=== PATIENT | male | born 1960 | race Caucasian/White ===

== ENCOUNTER 2016-08-14 21:31 | Inpatient (IN) | payer OTHER ==
[~2016-08-14] VITALS: Ht 180.3 cm; Wt 113.8 kg
--- NOTE | ~2016-08-14 | HEMODYNAMI ---
PATIENT:HENRIETTA WASHBURN MEDICAL RECORD: [id number] : 56 LOCATION:[facility] [id number] ADMISSION DATE: 08/16/16 Generatedon:08/17/20169:02 Patient name: HENRIETTA WASHBUNR Patient #: [id number] : 1960 Date of study: 08/17/2016 Page: Of Hemodynamic Procedure Report Patient Data Patient Demographics Procedure consent was obtained First Name: HENRIETTA Gender: Male Last Name: MADDISON : 1960 Patient #: [id number] Age: 56 year(s) Race: SSN: [id number] Additional ID: [id number] Contact details Address: [address] [place] [address] ROAD State: [facility] Zip code: [address] Past Medical History Allergies: No known allergies Admission Admission Data Admission Date: 08/16/2016 Admission Time: 11:34 Arrival Date: 08/14/2016 Arrival Time: 23:09 Admit Source: Other Insurance Payor: Private Room #: [id number] health insurance Height (in.): 71 BSA: 2.32 (m2) Height (cm.): 180.34 BMI: 34.87 (kg/m2) Weight (lbs.): 250 Weight (kg.): 113.4 Lab Results Lab Result Date: 08/17/2016 Lab Result Time: 0:00 Biochemistry Name Units Result Min Max BUN mg/dl 14 --(--*-)-- 7 18 Creatinine mg/dl 1.1 --(--*-)-- 0.6 1.3 CBC Name Units Result Min Max Hemoglobin g/dl 14.6 --(-*--)-- 13.5 17.5 Procedure Procedure Types Cath Procedure Diagnostic Procedure FFR/IVUS Intra-Coronary IVUS Initial PCI Procedure Coronary Stent Initial Procedure Description Procedure Date Procedure Date: 08/17/2016 Procedure Start Time: 8:44 Procedure End Time: 8:56 Procedure Staff Name Function Chandana Kuo MD Performing Physician [place] Macedo RT Scrub Debra Rae RN Nurse Bam Brantley RT Monitor Indication Angina Procedure Data Cath Procedure Fluoroscopy Diagnostic fluoroscopy Total fluoroscopy Time: 4.9 time: 4.9 min min Diagnostic fluoroscopy Total fluoroscopy dose: 563 dose: 563 mGy mGy Contrast Material Contrast Material Type Amount (ml) Isovue 300 67 Entry Location Entry Primary Successful Side Size Upsize Upsize Entry Closure Succes sful Closure Location (Fr) 1 (Fr) 2 (Fr) Remarks Device Remarks Femoral Right 7 Fr Exoseal artery Short Procedure Complications No complications Procedure Medications Medication Administration Route Dosage Oxygen NC 2 l/min Heparin Flush Bag added to field 2 bags (1000units/500ml NS) Lidocaine 2% added to field 20 Versed I.V. 1 mg Fentanyl I.V. 50 mcg Heparin Bolus I.V. 4000 units Versed I.V. 1 mg Fentanyl I.V. 50 mcg Versed I.V. 1 mg Fentanyl I.V. 50 mcg Versed I.V. 1 mg Fentanyl I.V. 50 mcg Fentanyl I.V. 50 mcg Versed I.V. 1 mg Hemodynamics Rest BSA: 2.32 (m2) HGB: 14.6 (g/dl) O2 Consumption: Estimated: 280.76 (ml/min) O2 Co nsumption indexed: Estimated:121.02 (ml/min/m) Heart Rate: 78 (bpm) Snapshots Pre Cath Intra NCS Post Cath Vital Signs Time Heart Resp SPO2 NIBP (mmHg) Rhythm Pain Sedation Rate (ipm) (%) Status Level (bpm) 8:16:08 74 15 98 146/88(116) NSR 0 (11) 10(A) , No pain 8:20:26 78 16 92 137/79(100) NSR 0 (11) 10(A) , No pain 8:24:37 75 16 97 126/73(95) NSR 0 (11) 10(A) , No pain 8:28:50 66 16 97 115/74(88) NSR 0 (11) 10(A) , No pain 8:33:03 68 16 97 119/64(94) NSR 0 (11) 10(A) , No pain 8:37:19 70 16 97 120/62(99) NSR 0 (11) 10(A) , No pain 8:41:31 73 16 97 116/70(96) NSR 0 (11) 10(A) , No pain 8:45:45 69 16 97 121/62(98) NSR 0 (11) 10(A) , No pain 8:49:57 74 16 96 109/69(86) NSR 0 (11) 10(A) , No pain 8:54:07 71 16 97 116/67(83) NSR 0 (11) 10(A) , No pain 8:59:04 79 16 97 118/76(102) NSR 0 (11) 10(A) , No pain Medications Time Medication Route Dose Verified Delivered Reason Notes Effectiveness by by 8:17:04 Oxygen NC 2 Chandana Debra Per physician l/min Shiela Rae RN 8:17:11 Heparin Flush added 2 Chandana Chandana used for Bag to bags Shiela Kuo MD procedure (1000units/500ml field NS) 8:17:17 Lidocaine 2% added 20ml Chandana Chandana used for to vial Shiela Kuo MD procedure field 8:44:13 Versed I.V. 1 mg Chandana Debra for sedation Shiela Rae RN 8:44:20 Fentanyl I.V. 50 Chandana Debra for sedation mcg Shiela Rae RN 8:45:32 Heparin Bolus I.V. 4000 Chandana Debra for dose units Shiela Rae RN anticoagulation verifeid wt dr kuo 8:45:53 Versed I.V. 1 mg Chandana Debra for sedation Shiela Rae RN 8:45:57 Fentanyl I.V. 50 Chandana Debra for sedation mcg Shiela Rae RN 8:47:29 Versed I.V. 1 mg Chandana Debra for sedation Shiela Rae RN 8:47:32 Fentanyl I.V. 50 Chandana Debra for sedation mcg Shiela Rae RN 8:48:13 Fentanyl I.V. 50 Chandana Debra for sedation mcg Shiela Rae RN 8:48:52 Versed I.V. 1 mg Chandana Debra for sedation Shiela Rae RN 8:50:31 Versed I.V. 1 mg Chandana Debra for sedation Tauth MD Randolph RN 8:50:45 Fentanyl I.V. 50 Chandana Debra for sedation [facility] Shiela Rae [employer] Log Time Note 7:50:45 Debra Rae RN sent for patient. Start room use. 8:08:11 Diagnostic Cath Status : Elective 8:08:40 Indication : Angina 8:08:55 Time tracking: Regular hours 8:08:59 Plan of Care:Hemodynamics will remain stable., Cardiac rhythm will remain stable., Comfort level will be maintained., Respiratory function will remain adequate., Patient/ family verbilizes understanding of procedure., Procedure tolerated without complication., Recovers from procedure without complications.. 8:11:24 Patient received from Med II to CCL 1 Alert and oriented. Tansferred to table in Supine position. 8:11:25 Warm blankets applied, and luisana hugger turned on for patient comfort. 8:11:26 Correct patient and procedure confirmed by team. 8:11:27 Signed procedure consent form obtained from patient. 8:11:28 ECG and BP/O2 sat monitors applied to patient. 8:14:56 Vital chart was started 8:15:05 Baseline sample Acquired. 8:15:11 Rhythm: sinus rhythm 8:15:12 Full Disclosure recording started 8:15:16 H&P Date Dictated: 08/17/2016 Within 30 days and on chart.. 8:15:17 Pre-procedure instructions explained to patient. 8:15:18 Pre-op teaching completed and patient verbalized understanding. 8:15:19 Family in waiting room. 8:15:21 Patient NPO since Midnight. 8:15:29 Is the patient allergic to Iodine/contrast media? No. 8:15:30 Was the patient premedicated? No 8:15:32 Is patient on blood thinner?Yes 8:15:35 ACC The patient was administered the following blood thiners within the last 24 hours: ACCPlavix 8:15:37 Patient diabetic? No. 8:15:39 Previous problem with sedation/anesthesia? No ? 8:15:41 Snore? Yes 8:15:42 Sleep apnea? Yes 8:15:43 Deviated septum? No 8:15:44 Opens mouth fully? Yes 8:15:44 Sticks out tongue? Yes 8:15:46 Airway obstruction? No ? 8:15:49 Dentures? No ? 8:15:52 Pre procedure: right dorsailis pedis pulse 2+ Normal; easily identifiable; not easily obliterated 8:15:55 Patient pain scale 0/10 ?. 8:16:02 IV patent on arrival in left forearm with 0.9% NaCl at [facility]. 8:16:06 Lab results completed and on chart. 8:16:10 Right groin area was prepped with chlora-prep and draped in sterile fashion 8:16:11 Alarms reviewed by R. N. 8:16:11 Sharps counted by scrub and verified by R.N. 8:17:04 Oxygen 2 l/min NC was given by Debra Rae RN; Per physician; 8:17:11 Heparin Flush Bag (1000units/500ml NS) 2 bags added to field was given by Chandana Kuo MD; used for procedure; 8:17:17 Lidocaine 2% 20ml vial added to field was given by Chandana Kuo MD; used for procedure; 8:21:34 Lab Result : BUN 14 mg/dl 8:21:34 Lab Result : Creatinine 1.1 mg/dl 8:21:34 Lab Result : Hemoglobin 14.6 g/dl 8:21:34 Hemodynamic formulas in Rest were re-calculated based on hemoglobin value from 08/17/2016 12:00:00 AM 8:21:43 Use device set Femoral PCI 8:21:45 Acist Syringe opened to sterile field. 8:21:45 Acist Hand Control opened to sterile field. 8:21:45 Bag Decanter opened to sterile field. 8:21:46 Cardinal Cath Pack opened to sterile field. 8:21:46 Terumo 6Fr [place] Sheath opened to sterile field. 8:21:47 St Live 260cm J .035 wire opened to sterile field. 8:21:47 Merit BasixCompak Inflation Kit opened to sterile field. 8:21:48 Acist Manifold opened to sterile field. 8:21:50 Tegaderm 4 x 4 opened to sterile field. 8:22:01 Daniels Whisper J 300cm 0.014 guide wire opened to sterile field. 8:22:02 Fleischmanns Chinik Eagleye IVUS Catheter opened to sterile field. 8:28:26 Baseline sample Acquired. 8:28:49 Zero performed for pressure channel P1 8:43:42 --------ALL STOP TIME OUT------ 8:43:42 Final Timeout: patient, procedure, and site verified with staff and physician. All members of the team are in agreement. 8:43:44 Right groin site verified by team. 8:43:46 Physical assessment completed. ASA score P 2 - A patient with mild systemic disease as per Chandana Kuo MD. 8:43:49 Sedation plan: IV Moderate Sedation Versed 8:43:53 Sedation plan: IV Moderate Sedation Fentanyl 8:44:09 Procedure started. 8:44:13 Versed 1 mg I.V. was given by Debra Rae RN; for sedation; 8:44:20 Fentanyl 50 mcg I.V. was given by Debra Rea RN; for sedation; 8:44:45 Local anesthetic to right femoral artery with Lidocaine 2% by Chandana Kuo MD.INITIAL ACCESS ONLY 8:44:58 A 7 Fr Short sheath was inserted into the Right Femoral artery 8:45:09 7 Fr AR 2 SH guide catheter was inserted over the wire 8:45:17 Medtronic Launcher 7Fr AR 2.0 SH guide catheter opened to sterile field. 8:45:22 WHISPER wire advanced. 8:45:25 FFR/IVUS 8:45:25 IVUS catheter advanced over wire. 8:45:28 IVUS pass to RCA lesion performed. 8:45:32 Heparin Bolus 4000 units I.V. was given by Debra Rae RN; for anticoagulation; dose verifeid wt dr kuo 8:45:51 Procedure type changed to Cath procedure, Diagnostic procedure, FFR/IVUS, Intra-Coronary IVUS Initial, PCI procedure, Coronary Stent Initial 8:45:53 Versed 1 mg I.V. was given by Debra Rae RN; for sedation; 8:45:57 Fentanyl 50 mcg I.V. was given by Debra Rae RN; for sedation; 8:47:29 Versed 1 mg I.V. was given by Debra Rae RN; for sedation; 8:47:32 Fentanyl 50 mcg I.V. was given by Debra Rae RN; for sedation; 8:48:13 Fentanyl 50 mcg I.V. was given by Debra Rae RN; for sedation; 8:48:52 Versed 1 mg I.V. was given by Debra Rae RN; for sedation; 8:49:17 IVUS catheter removed over wire. 8:50:31 Versed 1 mg I.V. was given by Debra Rae RN; for sedation; 8:50:45 Fentanyl 50 mcg I.V. was given by Debra Rae RN; for sedation; 8:50:51 Inflation Number: 1 A Medtronic Resolute 3.5 X 18 stent was prepped and advanced across the Mid RCA. The stent was deployed at 21 FORREST for 0:11 (min:sec). 8:50:52 Stent catheter was removed intact over wire. 8:51:03 ACC PCI Site: mRCA has 73% stenosis. 8:52:58 Inflation Number: 1 A Medtronic Resolute 3.5 X 22 stent was prepped and advanced across the Prox RCA. The stent was deployed at 21 FORREST for 0:16 (min:sec). 8:53:42 Stent catheter was removed intact over wire. 8:53:43 Wire removed. 8:53:43 Guide catheter removed. 8:54:10 Contrast amount:Isovue 300 67ml. 8:54:17 Sheath removed intact; hemostasis achieved with Exoseal to the Right Femoral artery. 8:54:19 Procedure ended.(Physican Out) 8:54:37 Fluoroscopy time 04.90 minutes. 8:54:42 Fluoroscopy dose: 563 mGy 8:54:42 Flurop Dose total: 563 8:54:43 Sharps counted by scrub and verified by R.N. 8:54:44 Insertion/operative site no bleeding no hematoma. 8:54:46 Post-op/insertion site Right Femoral artery dressed using a 4 x 4 and Tegaderm. 8:54:50 Post right femoral artery:stable 8:54:51 Post Procedure Pulses reassessed and unchanged 8:54:55 Post procedure rhythm: sinus rhythm 8:54:57 Post procedure instruction explained to patient.Patient verbalizes understanding. 8:55:17 Cordis 7Fr Exoseal opened to sterile field. 8:55:54 Procedure and supply charges have been captured, reviewed, submitted and are correct. 8:56:12 Procedure Complication : No complications 8:56:23 Vital chart was stopped 8:56:48 Report given to PCU. 8:56:51 Patient transfered to PCU with Bed. 8:56:53 Procedure ended. 8:56:53 Full Disclosure recording stopped 8:57:04 ACC-PCI Only Patient was given prescriptions, or instructed by Chandana Kuo MD to start/continue the following medications upon discharge: Aspirin, Plavix 8:57:06 End room use (Document Last) Intervention Summary Intervention Notes Time ActionType Lesion and Equipment Action# Pressure Duration Attributes Used 8:50:51 Place stent Mid RCA Medtronic 1 21 00:11 Resolute 3.5 X 18 stent 8:52:58 [address] stent Prox RCA Medtronic 1 21 00:16 Resolute 3.5 X 22 stent Device Usage Item Name Manufacture Quantity Catalog Hospital Part Current Minimal Lot# / Number Charge Number Stock Stock Serial# Code Acist Acist 1 00219 910270 759056 950994 20 Syringe Medical Systems Inc Acist Hand Acist 1 73082 720013 383516 960420 5 Control Medical Systems Inc Bag Microtek 1 2002S 187183 20036 278124 5 Pivot [employer] Inc. Cardinal Cardinal [address] 203782 77337 985027 5 Cath Pack Health Terumo 6Fr Terumo 1 [id number] 479853 310687 641096 [address] Live St Live 1 704663 553164 257598 025231 30 260cm J .035 wire Merit Merit 1 [id number] 345334 102754 260195 15 [employer]inKVZ Sports Medical Inflation Kit Acist Acist 1 37860 298442 088827 207999 5 Manifold Medical Systems Inc Tegaderm 4 3M 1 1626W 176796 384884 671697 5 x 4 Daniels Daniels 1 [id number] 814261 194827 864821 5 Whisper J Vascular 300cm 0.014 guide wire Fleischmanns Fleischmanns 1 [id number] 580003 481243 095598 8 Chinik Eagleye IVUS Catheter Medtronic Medtronic 1 [id number] 609365 256325 996370 0 Launcher 7Fr AR 2.0 SH guide catheter Medtronic Medtronic 1 [id number] 328598 912903 1 [id number] Resolute 3.5 X 18 stent Medtronic Medtronic 1 [id number] 901234 084205 6 [id number] Resolute 3.5 X 22 stent Cordis 7Fr Cardinal 1 [id number] 785139 265621 365868 5 [facility] Signature Audit [place] Stage Time Signature Unsigned Intra-Procedure 08/17/2016 Bam Brantley 9:02:01 AM RT(R) Signatures Monitor : Bam Brantley RT Signature : Date : Time : [address] [place] [address]
--- NOTE | ~2016-08-14 | HEMODYNAMI ---
PATIENT:HENRIETTA WASHBURN MEDICAL RECORD: [id number] : 56 LOCATION:[facility] [id number] ADMISSION DATE: 08/14/16 Generatedon:08/16/20169:33 Patient name: HENRIETTA WASHBURN Patient #: [id number] : 1960 Date of study: 08/16/2016 Page: Of Hemodynamic Procedure Report Patient Data Patient Demographics Procedure consent was obtained First Name: HENRIETTA Gender: Male Last Name: MADDISON : 1960 Patient #: [id number] Age: 56 year(s) Race: SSN: [id number] Additional ID: [id number] Contact details Address: [address] [place] [address] ROAD State: [facility] Zip code: [address] Past Medical History Allergies: No known allergies Admission Admission Data Admission Date: 08/14/2016 Admission Time: 23:09 Arrival Date: 08/14/2016 Arrival Time: 23:09 Admit Source: Other Insurance Payor: Private Room #: [id number] health insurance Height (in.): 71 BSA: 2.32 (m2) Height (cm.): 180.34 BMI: 34.87 (kg/m2) Weight (lbs.): 250 Weight (kg.): 113.4 Lab Results Lab Result Date: 08/16/2016 Lab Result Time: 0:00 Biochemistry Name Units Result Min Max BUN mg/dl 14 --(--*-)-- 7 18 Creatinine mg/dl 1.2 --(---*)-- 0.6 1.3 CBC Name Units Result Min Max Hemoglobin g/dl 14.9 --(-*--)-- 13.5 17.5 Procedure Procedure Types Cath Procedure Diagnostic Procedure LHC LHC w/Coronaries PCI Procedure Coronary Stent Initial Procedure Description Procedure Date Procedure Date: 08/16/2016 Procedure Start Time: 9:16 Procedure End Time: 9:31 Procedure Staff Name Function Chandana Kuo MD Performing Physician Deena Barkley RT Scrub Debra Rae RN Nurse Bam Brantley RT Furniture Restorer India Macedo RT Monitor Indication Angina Procedure Data Cath Procedure Fluoroscopy Diagnostic fluoroscopy Total fluoroscopy Time: 4.3 time: 4.3 min min Diagnostic fluoroscopy Total fluoroscopy dose: dose: 1053 mGy 1053 mGy Contrast Material Contrast Material Type Amount (ml) Isovue 370 112 Entry Location Entry Primary Successful Side Size Upsize Upsize Entry Closure Jenkins ccessful Closure Location (Fr) 1 (Fr) 2 (Fr) Remarks Device Remarks Radial Right 6 Fr Mechanical artery Short Compression Estimated blood loss: 5 ml Diagnostic catheters Device Type Used For End Catheter Placement Terumo 5Fr Mohit 110cm Multi-vessel catheter Angiography Cordis Infinity 5Fr AR 2 Right Coronary MOD catheter Angiography Procedure Complications No complications Procedure Medications Medication Administration Route Dosage Oxygen NC 2 l/min Heparin Flush Bag added to field 2 bags (1000units/500ml NS) Lidocaine 2% added to field 20 Benadryl I.V. 50 mg Radial Cocktail added to field 1 syringe (Verapomil 2mg/Nitro 400mcg/Heparin 1500units) Versed I.V. 1 mg Fentanyl I.V. 50 mcg Versed I.V. 1 mg Fentanyl I.V. 50 mcg Radial Cocktail I.A. 1 syringe (Verapomil 2mg/Nitro 400mcg/Heparin 1500units) Versed I.V. 1 mg Fentanyl I.V. 50 mcg Versed I.V. 1 mg Fentanyl I.V. 50 mcg Heparin Bolus I.V. 4000 units Fentanyl I.V. 50 mcg Fentanyl I.V. 50 mcg Hemodynamics Rest BSA: 2.32 (m2) HGB: 14.9 (g/dl) O2 Consumption: Estimated: 266.96 (ml/min) O2 Co nsumption indexed: Estimated:115.07 (ml/min/m) Heart Rate: 63 (bpm) Pressure Samples Time Site Value (mmHg) Purpose Heart Use Rate(bpm) 9:18 LV 99/64,67 Snapshot 82 Snapshots Pre Cath Intra NCS Post Cath Vital Signs Time Heart Resp SPO2 NIBP (mmHg) Rhythm Pain Sedation Rate (ipm) (%) Status Level (bpm) 8:33:49 65 12 98 138/91(120) NSR 0 (11) 10(A) , No pain 8:38:05 56 21 98 135/81(120) SB 0 (11) 10(A) , No pain 8:42:23 55 13 98 141/80(133) SB 0 (11) 10(A) , No pain 8:46:41 59 17 98 130/85(109) SB 0 (11) 10(A) , No pain 8:50:57 56 18 97 124/72(100) SB 0 (11) 10(A) , No pain 8:55:09 56 18 97 134/82(95) SB 0 (11) 10(A) , No pain 8:59:25 55 20 96 117/70(83) SB 0 (11) 10(A) , No pain 9:04:13 59 18 97 123/71(88) SB 0 (11) 10(A) , No pain 9:08:25 54 16 96 115/67(96) SB 0 (11) 10(A) , No pain 9:12:35 73 16 99 123/79(101) SB 0 (11) 10(A) , No pain 9:16:49 59 18 97 129/76(109) SB 0 (11) 10(A) , No pain 9:20:59 67 17 96 112/64(84) SB 0 (11) 10(A) , No pain 9:25:11 75 16 96 115/63(103) SB 0 (11) 10(A) , No pain 9:29:21 87 14 98 107/70(87) SB 0 (11) 10(A) , No pain 9:31:59 86 13 98 115/76(91) SB 0 (11) 10(A) , No pain Medications Time Medication Route Dose Verified Delivered Reason Notes Effectiveness by by 8:38:51 Oxygen NC 2 l/min Chandana Richardson Per physician Shiela Rae RN 8:38:58 Heparin Flush added 2 bags Chandana Ellington used for Bag to Shiela Kuo MD procedure (1000units/500ml field NS) 8:39:04 Lidocaine 2% added 20ml Chandana Ellington used for to vial Shiela Kuo MD procedure field 8:39:11 Benadryl I.V. 50 mg Chandana Richardson Per physician Shiela Rae RN 8:46:42 Radial Cocktail added 1 Chandana Chandana used for (Verapomil to syringe Shiela Kuo MD procedure 2mg/Nitro field 400mcg/Heparin 1500units) 9:13:03 Versed I.V. 1 mg Chandana Debra for sedation Shiela Rae RN 9:13:08 Fentanyl I.V. 50 mcg Chandana Debra for sedation Shiela Rae RN 9:15:48 Versed I.V. 1 mg Chandana Debra for sedation Shiela Rae RN 9:15:51 Fentanyl I.V. 50 mcg Chandana Debra for sedation Shiela Rae RN 9:17:12 Radial Cocktail I.A. 1 Chandana Chandana for (Verapomil syringe Shiela Kuo MD vasodilation 2mg/Nitro 400mcg/Heparin 1500units) 9:17:20 Versed I.V. 1 mg Chandana Debra for sedation Shiela Rae RN 9:17:23 Fentanyl I.V. 50 mcg Chandana Debra for sedation Shiela Rae RN 9:21:47 Versed I.V. 1 mg Chandana Debra for sedation Shiela Rae RN 9:21:49 Fentanyl I.V. 50 mcg Chandana Debra for sedation Shiela Rae RN 9:23:48 Fentanyl I.V. 50 mcg Chandana Debra for sedation Shiela Rae RN 9:24:29 Heparin Bolus I.V. 4000 Chandana Debra for dose units Shiela Rae RN anticoagulation verified wtih dr kuo 9:25:59 Fentanyl I.V. 50 mcg Chandana Debra for sedation Shiela Rae RN Procedure Log Time Note 8:10:28 Bam Brantley RT(R) sent for patient. Start room use. 8:18:45 Informed consent obtained and on chart 8:18:54 Arrival Date: 08/14/2016 11:09:00 PM 8:19:06 Insurance Payor : Private health insurance 8:19:07 Admit Source: Other 8:22:43 Lab Result : BUN 14 mg/dl 8:22:43 Lab Result : Hemoglobin 14.9 g/dl 8:22:43 Lab Result : Creatinine 1.2 mg/dl 8:22:54 Diagnostic Cath Status : Elective 8:23:22 Indication : Angina 8:23:34 Time tracking: Regular hours 8:23:39 Plan of Care:Hemodynamics will remain stable., Cardiac rhythm will remain stable., Comfort level will be maintained., Respiratory function will remain adequate., Patient/ family verbilizes understanding of procedure., Procedure tolerated without complication., Recovers from procedure without complications.. 8:28:18 Patient received from Med II to CCL 1 Alert and oriented. Tansferred to table in Supine position. 8:28:19 Warm blankets applied, and luisana hugger turned on for patient comfort. 8:28:19 Correct patient and procedure confirmed by team. 8:28:19 ECG and BP/O2 sat monitors applied to patient. 8:29:53 H&P Date Dictated: 08/14/2016 Within 30 days and on chart.. 8:29:55 Pre-procedure instructions explained to patient. 8:30:03 Pre-op teaching completed and patient verbalized understanding. 8:30:10 Family in waiting room. 8:30:12 Patient NPO since Midnight. 8:30:21 Patient allergic to No known allergies 8:30:40 Is the patient allergic to Iodine/contrast media? No. 8:31:30 Patient Weight : 113.4 lbs 8:32:24 Is patient on blood thinner?Yes 8:32:28 ACC The patient was administered the following blood thiners within the last 24 hours: ACCPlavix 8:32:30 Patient diabetic? No. 8:32:35 Snore? Yes 8:32:37 Sleep apnea? Yes 8:32:39 Deviated septum? No 8:32:41 Opens mouth fully? Yes 8:32:43 Sticks out tongue? Yes 8:32:50 Dentures? No ? 8:32:52 Vital chart was started 8:32:57 Baseline sample Acquired. 8:33:02 Rhythm: sinus rhythm 8:33:03 Full Disclosure recording started 8:33:17 Patient pain scale 0/10 ?. 8:33:28 IV patent on arrival in right forearm with 0.9% NaCl at O. 8:33:34 Lab results completed and on chart. 8:33:38 Right Radial & Right Groin area was prepped with chlora-prep and draped in sterile fashion 8:33:40 Alarms reviewed by R. N. 8:33:42 Sharps counted by scrub and verified by R.N. 8:33:43 Physician paged 8:34:57 Use device set Radial Dx 8:34:58 Acist Syringe opened to sterile field. 8:34:59 Cardinal Cath Pack opened to sterile field. 8:34:59 Bag Decanter opened to sterile field. 8:34:59 Terumo 6Fr Slender Glidesheath opened to sterile field. 8:35:00 St Live 260cm J .035 wire opened to sterile field. 8:35:02 Tegaderm 4 x 4 opened to sterile field. 8:35:04 Acist Hand Control opened to sterile field. 8:35:05 Acist Manifold opened to sterile field. 8:38:51 Oxygen 2 l/min NC was given by Debra Rae RN; Per physician; 8:38:58 Heparin Flush Bag (1000units/500ml NS) 2 bags added to field was given by Chandana Kuo MD; used for procedure; 8:39:04 Lidocaine 2% 20ml vial added to field was given by Chandana Kuo MD; used for procedure; 8:39:11 Benadryl 50 mg I.V. was given by Debra Rae RN; Per physician; 8:46:13 Patient Height : 180.34 inches 8:46:42 Radial Cocktail (Verapomil 2mg/Nitro 400mcg/Heparin 1500units) 1 syringe added to field was given by Chandana Kuo MD; used for procedure; 9:11:50 Physician arrived 9:11:51 --------ALL STOP TIME OUT------ 9:11:51 Final Timeout: patient, procedure, and site verified with staff and physician. All members of the team are in agreement. 9:12:06 Right Radial & Right Groin site verified by team. 9:12:13 Physical assessment completed. ASA score P 2 - A patient with mild systemic disease as per Chandana Kuo MD. 9:12:17 Sedation plan: IV Moderate Sedation Versed, Fentanyl 9:12:25 Procedure started. 9:13:03 Versed 1 mg I.V. was given by Debra Rae RN; for sedation; 9:13:08 Fentanyl 50 mcg I.V. was given by Debra Rae RN; for sedation; 9:15:48 Versed 1 mg I.V. was given by Debra Rae RN; for sedation; 9:15:51 Fentanyl 50 mcg I.V. was given by Debra Rae RN; for sedation; 9:16:24 Local anesthetic to right radial artery with Lidocaine 2% by Chandana Kuo MD.INITIAL ACCESS ONLY 9:16:34 A 6 Fr Short sheath was inserted into the Right Radial artery 9:17:06 A Access Point 5Fr Mohit 110cm catheter was advanced over the wire and used for Multi-vessel Angiography. 9:17:12 Radial Cocktail (Verapomil 2mg/Nitro 400mcg/Heparin 1500units) 1 syringe I.A. was given by Chandana Kuo MD; for vasodilation; 9:17:20 Versed 1 mg I.V. was given by Debra Rae RN; for sedation; 9:17:23 Fentanyl 50 mcg I.V. was given by Debra Rae RN; for sedation; 9:18:18 LV hemodynamics recorded. 9:18:19 LV gram done using ASHLEY 9:18:22 Injector settings: Ml/sec: 5, Volume: 15, 9:18:27 EF : 55 % 9:18:54 Catheter removed. 9:20:07 Cordis 6FR XBLAD 3.5 guide catheter opened to sterile field. 9:20:20 A Cordis Infinity 5Fr AR 2 MOD catheter was advanced over the wire and used for Right Coronary Angiography. 9:20:23 RCA angiography performed. 9:20:27 Injector settings: Ml/sec: 3, Volume: 6, 9:20:55 Catheter removed. 9:21:06 6 Fr xblad 3.5 guide catheter was inserted over the wire 9:21:47 Versed 1 mg I.V. was given by Debra Rae RN; for sedation; 9:21:49 Fentanyl 50 mcg I.V. was given by Debra Rae RN; for sedation; 9:21:52 LCA angiography performed. 9:21:54 Injector settings: Ml/sec: 3, Volume: 6, 9:22:42 Daniels Whisper J 300cm 0.014 guide wire opened to sterile field. 9:22:42 Merit BasixCompak Inflation Kit opened to sterile field. 9:23:48 Fentanyl 50 mcg I.V. was given by Debra Rae RN; for sedation; 9::29 Heparin Bolus 4000 units I.V. was given by Debra Rae RN; for anticoagulation; dose verified wtih dr kuo 9:24:48 whisper wire advanced. 9:25:59 Fentanyl 50 mcg I.V. was given by Debra Rae RN; for sedation; 9::14 Inflation Number: 1 A Medtronic Resolute 2.5 X 14 stent was prepped and advanced across the Mid CX. The stent was deployed at 13 FORREST for 0:10 (min:sec). 9::42 Stent catheter was removed intact over wire. 9::43 Wire removed. 9::43 Guide catheter removed. 9:29:18 Terumo TR Band Standard opened to sterile field. 9:29:49 Sheath removed intact; hemostasis achieved with Mechanical Compression to the Right Radial artery. 9:29:50 Procedure ended.(Physican Out) 9:30:00 Fluoroscopy time 04.30 minutes. 9:30:05 Fluoroscopy dose: 1053 mGy 9:30:05 Flurop Dose total: 1053 9:30:09 Contrast amount:Isovue 370 112ml. 9:30:13 Sharps counted by scrub and verified by R.N. 9:30:15 TR band inflated with 10cc of air. 9:30:17 Insertion/operative site no bleeding no hematoma. 9:30:21 Post right radial artery:stable 9:30:23 Post Procedure Pulses reassessed and unchanged 9:30:26 Post procedure rhythm: unchanged. 9:30:28 Estimated blood loss: 5 ml 9:30:29 Post procedure instruction explained to patient.Patient verbalizes understanding. 9:30:30 Patient needs reinforcement of post procedure teaching. 9:30:48 Procedure type changed to Cath procedure, Diagnostic procedure, LHC, LHC w/Coronaries, PCI procedure, Coronary Stent Initial 9:30:49 Procedure and supply charges have been captured, reviewed, submitted and are correct. 9:30:53 Procedure Complication : No complications 9:30:55 Vital chart was stopped 9:30:56 See physician's report for complete and final results. 9:31:11 Report given to Med II. 9:31:13 Patient transfered to Med II with Stretcher. 9:31:16 Procedure ended. 9:31:16 Full Disclosure recording stopped 9::28 ACC-PCI Only Patient was given prescriptions, or instructed by Chandana Kuo MD to start/continue the following medications upon discharge: Plavix 9::29 End room use (Document Last) Intervention Summary Intervention Notes Time ActionType Lesion and Equipment Action# Pressure Duration Attributes Used 9::14 Place stent Mid CX Medtronic 1 13 00:10 Resolute 2.5 X 14 stent Device Usage Item Name Manufacture Quantity Catalog Hospital Part Current Minimal Lot# / Number Charge Number Stock Stock Serial# Code Acist Acist 1 57288 489734 977887 905352 20 Syringe Medical Systems Inc Cardinal Cardinal 1 [id number] 558904 80213 822493 5 Cath Pack Health Bag Microtek 1 2001S 541755 80007 327069 5 shipbeat [employer] Inc. Terumo 6Fr Terumo 1 [id number] 300181 148440 940549 [address] Live St Live 1 183923 451727 116786 294757 30 260cm J .035 wire Tegaderm 4 3M 1 1626W 274652 477275 520579 5 x 4 Acist Hand Acist 1 96955 217992 559237 557562 5 Control Medical Systems Inc Acist Acist 1 10971 303684 271703 838813 5 Manifold Medical Systems Inc Terumo 5Fr Terumo 1 40-4595 345879 059757 166956 5 Mohit 110cm catheter Cordis 6FR Cardinal 1 [id number] 651678 213009 123402 10 XBLAD 3.5 Health guide catheter Cordis Cardinal 1 [id number] 321674 659694 390603 20 Collective Digital Studioity Health 5Fr AR 2 MOD catheter Daniels Daniels 1 [id number] 722721 115430 002326 5 Whisper J Vascular 300cm 0.014 guide wire Merit Merit 1 OR0956 135653 832112 228543 15 [employer] Medical Inflation Kit Medtronic Medtronic 1 [id number] 806957 290370 8 [id number] Resolute 2.5 X 14 stent Terumo TR Terumo 1 [id number] 201026 408964 571019 40 Band Standard Signature Audit [employer] [place] Stage Time Signature Unsigned Intra-Procedure 08/16/2016 India Macedo 9:33:13 AM RT(R) Signatures Monitor : India Macedo RT Signature : Date : Time : [place] [id number] [facility] [place] [address]
[~2016-08-14 21:31] MED LIST: ASPIRIN EC81 M1 PO; COZAAR50 MG PO; LIPITOR40 MG PO; PLAVIX75 MG PO
[2016-08-14 22:09] LABS: BASOPHILS 0.7 % (0.0-2.0); EOSINOPHILS 3.2 % (0-7); HEMATOCRIT 43.1 % (42.0-54.0); HEMOGLOBIN 14.9 g/dL (13.5-17.5); IMMATURE GRANULOCYTES 0.2 % (0-5); MCH 32.7 pg (26.0-34.0); MCHC 34.6 g/dL (31.0-37.0); MCV 94.5 fL (80.0-100.0); MEAN PLATELET VOLUME 10.9 fL (7.4-10.4); MONOCYTES 8.5 % (2-11); NEUTROPHILS 68.4 % (40-80); PLATELET COUNT 204 10x3/uL (130-400); RBC 4.56 10x6/uL (4.20-6.10); RDW 12.4 % (11.5-14.5); WBC 10.3 10x3/uL (4.8-10.8)
[2016-08-14 22:20] LABS: APTT 26.9 SECONDS (22.8-39.4); INR 1.1 (0.85-1.17); PROTIME 14.1 SECONDS (11.6-15.0)
[2016-08-14 22:25] LABS: ALBUMIN 4.1 g/dL (3.4-5.0); ALKALINE PHOSPHATASE 68 U/L (46-116); ALT (SGPT) 50 U/L (10-68); BILIRUBIN - TOTAL 0.57 mg/dL (0.2-1.3); CALC OSMOLALITY 283 mosm/kg (275-300); CALCIUM 9.4 mg/dL (8.5-10.1); CARBON DIOXIDE 27.2 mmol/L (21.0-32.0); CHLORIDE - SERUM 105 mmol/L (98-107); CREATININE - SERUM 1.2 mg/dL (0.6-1.3); GLUCOSE 102 mg/dL (74-106); POTASSIUM - SERUM 4.3 mmol/L (3.5-5.1); PROTEIN - SERUM 7.1 g/dL (6.4-8.2); SODIUM 142 mmol/L (136-145); UREA NITROGEN 14 mg/dL (7-18); eGFR NON AFRICAN AMERICAN 66 mL/min (90-120)
[2016-08-14 22:33] LABS: CREATINE KINASE 150 UL (21-232); PRO BNP 56 pg/mL (0-125)
[2016-08-14 22:35] LABS: TROPONIN-I < 0.017 ng/mL (0.000-0.060)
--- NOTE | 2016-08-14 23:37 | NUR ---
PT ARRIVED VIA W/C WITH DX ACS. PT NAD, DENIES ANY DISCOMFORT. AT BEDSIDE.
[2016-08-14 23:56] VITALS: BP 142/88; Ht 180.3 cm; Wt 113.8 kg
--- NOTE | 2016-08-15 00:16 | NUR ---
ADMISSION ASSESSMENT AND HISTORY COMPLETED. VSS. PT DENIES ANY DISCOMFORT. SB PER CM HR 57. WILL CONTINUE TO MONITOR.
[2016-08-15 00:17] VITALS: BP 142/88
[2016-08-15] MEDS ORDERED: ATIVAN0.5 MG PO (00:19)
[2016-08-15] MEDS ORDERED: LISINOPRIL5 MG PO (00:19)
[2016-08-15] MEDS ORDERED: PEPCID40 MG PO (00:20)
[2016-08-15] MEDS ORDERED: NITROSTAT0.4 MG SL (00:21)
--- NOTE | 2016-08-15 02:32 | NUR ---
PT RESTING WITH EYES CLOSED. RESP EVEN AND REGULAR. SR UP X2 CALL LIGHT WITHIN REACH.
--- NOTE | 2016-08-15 04:25 | NUR ---
PT RESTING WITH EYES CLOSED. RESP EVEN AND REGULAR. SR UP X2, CALL LIGHT WITHIN REACH.
[2016-08-15 04:29] VITALS: BP 121/65
--- NOTE | 2016-08-15 06:32 | NUR ---
VSS THROUGHOUT NIGHT. SR/SB PER CM. PT DENIED ANY DISOCMFORT. NEEDS MET; WILL CONTINUE TO MONITOR.
[2016-08-15 07:55] VITALS: BP 138/82
--- NOTE | 2016-08-15 09:36 | NUR ---
TELEMETRY SR. NO C/O C/P NOTED. REFUSES HC WITH DR. MORALES. WILL CONT. PLAN OF CARE.
--- NOTE | 2016-08-15 11:27 | NUR ---
UP AMBULATING HALLWAY WITH . GAIT STEADY.
[2016-08-15 12:00] VITALS: BP 119/72
--- NOTE | 2016-08-15 15:00 | NUR ---
CONSENTS SIGNED FOR [facility].
[2016-08-15 16:00] VITALS: BP 123/74
--- NOTE | 2016-08-15 19:20 | NUR ---
BEDSIDE SHIFT REPORT PT SITTING UP IN CHAIR AT BEDSDIE CHAIR NO DISTRESS OBSERVED IN ROOM AT BEDSIDE NO DISTRESS OBSERVED RESPERATIONS EVEN AND UNLABORED IVP SALINE LOCKED AND PT AWARE OF CATH PROCEDURE IN AM CONSENTS SIGNED AND TO CHART WILL MONITOR CALL LIGHT IN REACHS RX2 BED LOW AND LOCKED
[2016-08-15 20:00] VITALS: BP 130/81
--- NOTE | 2016-08-15 21:59 | NUR ---
PT LAYING IN BED AT BEDSIDE NO DISTRESS OBSERVED PT AWARE OF NPO STATUS AFTER MIDNGHT TONIGHT WILL MONITOR
[2016-08-16] VITALS (13 sets, daily range): BP systolic 112–153; BP diastolic 64–89
--- NOTE | 2016-08-16 07:15 | NUR ---
RESTING IN BED RESP UNLABORED SKIN W/D DENIES ANY NEEDS OR DISCOMFORT NAD NOTED
[2016-08-16 10:22] LABS: BASOPHILS 0.5 % (0.0-2.0); EOSINOPHILS 2.9 % (0-7); HEMATOCRIT 42.2 % (42.0-54.0); HEMOGLOBIN 14.6 g/dL (13.5-17.5); IMMATURE GRANULOCYTES 0.2 % (0-5); LYMPHOCYTES 20.2 % (15-50); MCH 32.7 pg (26.0-34.0); MCHC 34.6 g/dL (31.0-37.0); MCV 94.6 fL (80.0-100.0); MEAN PLATELET VOLUME 10.7 fL (7.4-10.4); MONOCYTES 8.7 % (2-11); NEUTROPHILS 67.5 % (40-80); PLATELET COUNT 190 10x3/uL (130-400); RBC 4.46 10x6/uL (4.20-6.10); RDW 12.3 % (11.5-14.5)
[2016-08-16 10:39] LABS: ANION GAP 7.8 mmol/L (8-16); CALCIUM 8.1 mg/dL (8.5-10.1); CARBON DIOXIDE 31.6 mmol/L (21.0-32.0); CREATININE - SERUM 1.1 mg/dL (0.6-1.3); POTASSIUM - SERUM 4.4 mmol/L (3.5-5.1)
[2016-08-16 10:46] LABS: WBC 6.2 10x3/uL (4.8-10.8)
--- NOTE | 2016-08-16 19:43 | NUR ---
ASSESSMENT COMPLETE, A&O, SITTING UP IN BED WATCHING TV. RESPERATIONS EVEN ON ROOM AIR. DRSG TO RIGHT WRIST C/D/I. TR BAND IN PLACE BUT NOT INFLATED, PT KEEPING IT ON TO REMIND HIM NOT TO BEND WRIST. DENIES PAIN OR NEEDS, BED LOW, CL IN REACH.
[2016-08-17] VITALS: BP 151/72
--- NOTE | 2016-08-17 01:19 | NUR ---
SLEEPING IN BED, RESPIRATIONS UNLABORED. TELEMETRY SHOWING 66 BPM IN NSR. NO O2 THERRAPY NOTED. BED LOW AND LOCKED, CALL LIGHT IN REACH. WILL CONTINUE TO MONITOR.
--- NOTE | 2016-08-17 01:23 | NUR ---
NO S&S OF ACUTED DISTRESS NOTED.
--- NOTE | 2016-08-17 03:05 | NUR ---
RESTING WITH EYES CLOSED, RESPERATIONS EVEN, NO S/S DISTRESS NOTED.
[2016-08-17 04:00] VITALS: BP 152/78
--- NOTE | 2016-08-17 07:15 | NUR ---
0700-NPO STATUS FOR HEART CATH THIS AM. HAD HEART CATH THROUGH RIGHT WRIST YESTERDAY, OP SITE IS SEEN WITH DRY INTACT DRESSING, GOOD RADIAL PULSE. ON HEART MONITOR SHWOING SR, HR 60. RIGHT AC WITH SALINE LOCK SEEN. PERMITS ARE SIGNED FOR TODAY. ON ROOM AIR. WILL CONTINUE TO [facility].
--- NOTE | 2016-08-17 08:07 | NUR ---
TO FURNACE FIRER VIA BED PAST PREOP MEDS GIVEN. AT BEDSIDE.
[2016-08-17 08:56] VITALS: BP 121/73
--- NOTE | 2016-08-17 09:18 | NUR ---
0915-RETURNS FROM MACHINE PAINT MIXER WITH DRESSING, DRY AND INTACT TO RIGHT GROIN. PPP AND STRONG. ON 2L PER NC. AT BEDSIDE. WILL MONITOR.
--- NOTE | 2016-08-17 10:27 | NUR ---
Patient Name: HENRIETTA WASHBURN Admission Status: ER Accout number: [id number] Admission Date: 08-16-2016 : 1960 Admission Diagnosis: Attending: KYLIE Current LOS: 1 Anticipated DC Date: 08-17-2016 Planned Disposition: Home Primary Insurance: [employer] PPO Discharge Planning Comments: * Is the patient Alert and Oriented? Yes 0 * How many steps to enter\exit or inside your home? NONE 0 * PCP DR. CAPELLAN 0 * Pharmacy [facility] [address] 0 * Preadmission Environment Home with Family 0 * ADLs Independent 0 * Equipment CPAP 0 * Other Equipment [facility] - MEDICAL EQUIPMENT PROVIDER 0 * List name and contact numbers for known caregivers / representatives who currently or will assist patient after discharge: CAROLINE WASHBURN, SPOUSE, 0 * Community resources currently utilized None 0 * Additional services required to return to the preadmission environment? No 0 * Can the patient safely return to the preadmission environment? Yes 0 * Has this patient been hospitalized within the prior 30 days at any hospital? No 0 CM MET WITH PT AND SPOUSE IN ROOM TO DISCUSS DISCHARGE PLANNING AND NEEDS. PT REPORTS LIVING AT HOME INDEPENDENTLY WITH SPOUSE. PT HAS CPAP PROVIDED BY [facility]. PT HAS NO OUTSIDE SERVICES ASSISTING IN THE HOME. CM DISCUSSED AVAILABILITY OF HOME HEALTH, REHAB SERVICES AND MEDICAL EQUIPMENT. PT DENIES DISCHARGE NEEDS, REPORTS HIS SPOUSE WILL PICK HIM UP FOR DISCHARGE HOME. PT DENIES DISCHARGE NEEDS, CM TO FOLLOW AND ASSIST NEEDED. Location Manager: Ward Blanco
[2016-08-17 12:19] VITALS: BP 110/62
--- NOTE | 2016-08-17 13:03 | NUR ---
PLACED IN 30 DEGREE SETTING WITH AT BEDSIDE. DENIES NEEDS AT PRESENT TIME. RIGHT GROIN IS STILL SOFT TO PALPATE. PATIENT HAS ALREADY VOIDED. WILL CONTINUE TO MONITOR.
--- NOTE | 2016-08-17 13:45 | NUR ---
SITTING AT 45 DREGREES IN BED. NO BLEEDING SEEN. WILL CONTINUE TO MONITOR.
--- NOTE | 2016-08-17 14:33 | NUR ---
PATIENT UP IN ROOM AMBULATING WITH MYSELF. AT BEDSIDE. DENIES NEEDS AT PRESENT TIME. WILL CONTINUE TO MONITOR. WILL RE-RECHECK IN APPROX. 20-30 MIN AND IF STILL DOING WELL, WILL DISCHARGE. PATIENT IS TO CALL ME IF ANY PROBLEMS BETWEEN NOW AND THEN.
--- NOTE | 2016-08-17 15:57 | NUR ---
1530-VERBAL AND WRITTEN INSTRUCTIONS GIVEN TO PATIENT AND TO . SALINE LOCK REOMVED WITH CATH TIP INTACT. DISCHARGED VIA WHEELCHAIR TO HOME.
--- NOTE | 2016-08-18 14:16 | HP ---
PATIENT: HENRIETTA WASHBURN MEDICAL RECORD: [id number] ACCOUNT: [id number] LOCATION:[address] : 56 ADMISSION DATE: 08/16/16 HISTORY AND PHYSICAL EXAMINATION HISTORY OF PRESENT ILLNESS: A 56-year-old gentleman with a known history of coronary artery disease, status post intervention. He had multivessel disease at that time and then very well underwent nuclear stress testing, found to have reversible ischemia and is scheduled to see Dr. Kuo on . He is ____ yesterday and had some chest tightness, pressure with a questionable AFib versus exercise-induced PVCs yesterday, enzymes were negative so far. He is admitted for further evaluation. PAST MEDICAL HISTORY: 1. History of hypertension. 2. Hyperlipidemia. 3. Coronary artery disease as described above. ALLERGIES: None known. MEDICATIONS: Typically include Plavix 75 every day, atorvastatin 40 q. day, Lisinopril 5 q. day, aspirin 81 q. day, Ativan 0.5 t.i.d. p.r.n., and Prevacid 40 q. day. SOCIAL HISTORY: and lives here in town. He is a nonsmoker. He takes care of all LDLs. REVIEW OF SYSTEMS: The patient reports easy bruising but reports no swollen glands. The patient reports no fever, no night sweats, no significant weight gain, no significant weight loss. No significant exercise tolerance. The patient reports no dry eyes, no irritation, no vision change. Patient reports no difficulty hearing and no ear pain. Patient reports no frequent nose bleeds or nose and sinus problems. Patient reports on arm pain on exertion. No shortness of breath while lying down. No history of heart murmur. Patient reports no cough, no wheezing or coughing up blood. Patient reports no abdominal pain, no vomiting. Normal appetite. No diarrhea and not vomiting blood. No nausea and no constipation. Patient reports no incontinence. No difficulty urinating. No hematuria. No increased frequency. Patient reports no muscle aches. No weakness, no arthralgias, no back pain. No swelling of the extremities. Patient reports no abnormal mole, no jaundice, no rashes. Reports no loss of consciousness. No weakness and no numbness. No seizures, dizziness, or headaches. The patient reports no depression, no sleep disturbance, feeling safe in a relationship and no alcohol abuse. Patient reports on fatigue. Reports no runny nose or sinus pressure. No itching, no hives, and no frequent sneezing. PHYSICAL EXAMINATION: GENERAL: Pleasant gentleman in no acute distress. VITAL SIGNS: Blood pressure 138/82, pulse 53 and regular. HEENT: Normocephalic and atraumatic. NECK: No JVD or bruit. HEART: Regular. LUNGS: Clear. ABDOMEN: Soft and nontender. EXTREMITIES: Pulse 2+ and equal. There is no edema. HISTORY AND PHYSICAL [id number] HENRIETTA WASHBURN DIAGNOSTIC DATA: ECG shows nonspecific ST-T changes. IMPRESSION: Accelerated angina. We will plan for diagnostic angiography. He has requested Dr. Kuo, he do not have any problem with this. Further care based on the above. TRANSINT:[id number] Voice Confirmation ID: [id number] DOCUMENT ID: [id number] THAD ABARCA MD at 1416 CC: [id number] DICTATION DATE: 08/15/16 0951 SECTION LEADER AND MACHINE SETTER: 08/15/16 1012 DIS IN 08/17/16 [facility] [address] [place] [address]
--- NOTE | 2016-08-23 14:16 | OP ---
PATIENT NAME: HENRIETTA WASHBURN MEDICAL RECORD: [id number] :56 LOCATION:D.M2 D.2117 ADMISSION DATE:08/16/16 SURGEON: DYLAN TIAN MD DATE OF OPERATION: 08/16/2016 PROCEDURES: 1. PTCA, stent left circumflex. 2. Left heart catheterization. 3. Selective coronary angiography. 4. Left ventriculogram. INDICATION: Angina and coronary artery disease. PROCEDURE IN DETAIL: After informed consent was obtained and after detailed explanation of risks, benefits, as well as alternative therapies, the patient elected to proceed with angiogram and angioplasty. The right radial area was prepped and draped in normal sterile fashion. The right radial artery was cannulated via modified Seldinger technique with placement of 6-Kazakh sheath. All catheters exchanged through this sheath. FINDINGS: The left ventriculogram was performed in the standard 30-degree ASHLEY view reveals good cardiac wall motion throughout all segments. Overall ejection fraction 55% to 60%. SELECTIVE CORONARY ANGIOGRAPHY: 1. Left main showed no significant angiographic disease. 2. The left anterior descending has previously placed stents, these are widely patent; however, after the previously placed stents, there are multiple areas of 80+ percent stenosis. 3. The left circumflex has previously placed stent. This is widely patent with no significant restenosis. However, there is a new 70% to 80% stenosis. 4. The right coronary has multiple areas of moderate irregularities better find by intravascular ultrasound. PTCA STENT OF THE LEFT CIRCUMFLEX: The stent used was a 2.5 x 14 mm Resolute. Result was 0% residual stenosis. OVERALL IMPRESSION: Successful percutaneous transluminal coronary angioplasty stent of the left circumflex going from 70% to 80% initial stenosis to 0% residual. PLAN: PTCA, stent of the RCA and LAD in the near future. TRANSINT:[id number] Voice Confirmation ID: [id number] DOCUMENT ID: [id number] DYLAN TIAN MD at 1416 CC: [id number] DICTATION DATE: 08/16/16 0932 SHEET LAYER: 08/16/16 1037 DIS IN 08/17/16 [place] [address]
--- NOTE | 2016-08-23 14:16 | OP ---
PATIENT NAME: HENRIETTA WASHBURN MEDICAL RECORD: [id number] :56 LOCATION:D.M2 D.2117 ADMISSION DATE:08/16/16 SURGEON: DYLAN TIAN MD DATE OF OPERATION: 08/17/2016 PROCEDURES: 1. PTCA stent RCA. 2. Intravascular ultrasound RCA. 3. Selective coronary angiography. INDICATION: Angina and coronary artery disease. PROCEDURE IN DETAIL: After informed consent was obtained and after detailed explanation of risks, benefits as well as alternative therapies, the patient elected to proceed with angiogram and angioplasty. The right femoral area was prepped and draped in normal sterile fashion. The right femoral artery was cannulated via modified Seldinger technique with the placement of 6-[place] sheath. All catheters exchanged through this sheath. FINDINGS: The right coronary had intravascular ultrasound evaluation revealing 70-80% stenosis throughout the proximal portion. This is addressed with a 3.5 x 18 and 3.5 x 22, both Resolute stents. Result was 0% residual stenosis. OVERALL IMPRESSION: Successful percutaneous transluminal coronary angioplasty stent of the right coronary artery going from 70% to 80% initial stenosis confirmed by intravascular ultrasound to 0% residual. TRANSINT:[id number] Voice Confirmation ID: [id number] DOCUMENT ID: [id number] DYLAN TIAN MD at 1416 CC: [id number] DICTATION DATE: 08/17/16 09 HARBOR ENGINEER: 08/17/16 0932 DIS IN 08/17/16 [place] [id number]
--- NOTE | 2016-08-23 14:16 | DS ---
PATIENT:HENRIETTA WASHBURN :56 MEDICAL RECORD: [id number] DISCHARGE SUMMARY ADMISSION DATE: 08/16/16 DISCHARGE DATE: 08/17/16 DISCHARGE DIAGNOSES: 1. Angina. 2. Coronary artery disease. 3. Percutaneous transluminal coronary angioplasty stent left circumflex and right coronary artery this admission. 4. Hypertension. 5. Hyperlipidemia. HOSPITAL COURSE: This is a gentleman who presents with anginal symptomatology, found to have 3-vessel severe coronary artery disease, underwent successful PTCA stent of the artery and left circumflex this admission and was discharged home with the addition of aspirin and Plavix to his medical regimen. We will follow up in 1 week for PTCA stent of the LAD. TRANSINT:[id number] Voice Confirmation ID: [id number] DOCUMENT ID: [id number] DYLAN TIAN MD at 1416 CC: [id number] DICTATION DATE: 08/17/16901 TECHNICAL SUPPORT 1 SOFTWARE ENGINEER: 08/17/16 0939 DIS IN 08/17/16 [place] [id number] [place] [address]
== END 2016-08-17 16:00 | disposition home or self-care (01) | DRG 247 ==
LOC: D.ER 21:31 → D.M2 23:09 → OBSVTIME 23:13 → D.M2 08-16 11:34
PROVIDERS: Family Medicine; Internal Medicine Interventional Cardiology; ADMIT Internal Medicine Interventional Cardiology
PROC: 4A023N7 Measurement of Cardiac Sampling and Pressure, Left Heart, Percutaneous Approach (ICD-10-PCS; 2016-08-16)
PROC: B2111ZZ Fluoroscopy of Multiple Coronary Arteries using Low Osmolar Contrast (ICD-10-PCS; 2016-08-16)
PROC: B2151ZZ Fluoroscopy of Left Heart using Low Osmolar Contrast (ICD-10-PCS; 2016-08-16)
PROC: 027034Z Dilation of Coronary Artery, One Artery with Drug-eluting Intraluminal Device, Percutaneous Approach (ICD-10-PCS; principal; 2016-08-16 07:00)
PROC: 027035Z Dilation of Coronary Artery, One Artery with Two Drug-eluting Intraluminal Devices, Percutaneous Approach (ICD-10-PCS; 2016-08-17)
PROC: B240ZZ3 Ultrasonography of Single Coronary Artery, Intravascular (ICD-10-PCS; 2016-08-17)
DX: I25.119 Atherosclerotic heart disease of native coronary artery with unspecified angina pectoris (principal); Z95.5 Presence of coronary angioplasty implant and graft; E78.5 Hyperlipidemia, unspecified; I10 Essential (primary) hypertension

== ENCOUNTER 2016-08-24 06:57 | Outpatient (CLI) | payer OTHER ==
[~2016-08-24] VITALS: Ht 180.3 cm; Wt 111.4 kg
--- NOTE | ~2016-08-24 | HEMODYNAMI ---
PATIENT:HENRIETTA WASHBURN MEDICAL RECORD: [id number] : 56 LOCATION:D.CAT ADMISSION DATE: 08/24/16 Generatedon:08/24/201610:55 Patient name: HENRIETTA WASHBURN Patient #: [id number] : 1960 Date of study: 08/24/2016 Page: Of Hemodynamic Procedure Report Patient Data Patient Demographics Procedure consent was obtained First Name: HENRIETTA Gender: Male Last Name: MADDISON : 1960 [facility] Initial: D Age: 56 year(s) Patient #: [id number] Race: SSN: [id number] Additional ID: [id number] Contact details [address]: [address] [place] [address] ROAD [place] [facility] Zip code: [address] Past Medical History Allergies: No known allergies Admission Admission Data Admission Date: 08/24/2016 Admission Time: 6:57 Admit Source: Other Procedure Procedure Types Cath Procedure PCI Procedure Coronary Stent Initial Procedure Description Procedure Date Procedure Date: 08/24/2016 Procedure Start Time: 10:28 Procedure End Time: 10:54 Procedure Staff Name Function Chandana Kuo MD Performing Physician [place] Macedo RT Scrub Debra Rae RN Nurse Rush Herman RT Project Management Analyst Deena Barkley RT Monitor Procedure Data Cath Procedure Fluoroscopy Diagnostic fluoroscopy Total fluoroscopy Time: time: 12.6 min 12.6 min Diagnostic fluoroscopy Total fluoroscopy dose: dose: 2061 mGy 2061 mGy Contrast Material Contrast Material Type Amount (ml) Isovue 300 165 Entry Location Entry Primary Successful Side Size Upsize Upsize Entry Closure Succes sful Closure Location (Fr) 1 (Fr) 2 (Fr) Remarks Device Remarks Femoral Right 7 Fr Exoseal artery Short Estimated blood loss: 10 ml Procedure Complications No complications Procedure Medications Medication Administration Route Dosage Oxygen NC 2 l/min Heparin Flush Bag added to field 2 bags (1000units/500ml NS) Lidocaine 2% added to field 20 Benadryl I.V. 50 mg Heparin Bolus I.V. 4000 units Versed I.V. 1 mg Fentanyl I.V. 50 mcg Fentanyl I.V. 50 mcg Versed I.V. 1 mg Versed I.V. 1 mg Fentanyl I.V. 50 mcg Versed I.V. 1 mg Fentanyl I.V. 50 mcg Versed I.V. 1 mg Fentanyl I.V. 50 mcg Versed I.V. 1 mg Fentanyl I.V. 50 mcg Versed I.V. 1 mg Versed I.V. 1 mg Hemodynamics Rest Heart Rate: 72 (bpm) Snapshots Pre Cath Intra NCS Post Cath Vital Signs Time Heart Resp SPO2 NIBP (mmHg) Rhythm Pain Sedation Rate (ipm) (%) Status Level (bpm) 10:15:16 62 18 100 112/71(98) NSR 0 (11) 10(A) , No pain 10:19:28 73 14 100 122/70(100) NSR 0 (11) 10(A) , No pain 10:23:33 76 15 98 102/71(93) NSR 0 (11) 10(A) , No pain 10:27:39 66 15 97 112/75(82) NSR 0 (11) 10(A) , No pain 10:31:51 77 18 95 108/58(88) NSR 0 (11) 10(A) , No pain 10:36:03 91 16 96 104/65(82) NSR 0 (11) 10(A) , No pain 10:40:11 95 16 98 110/70(88) NSR 0 (11) 10(A) , No pain 10:44:21 84 15 97 103/62(80) NSR 0 (11) 10(A) , No pain 10:48:31 89 16 96 104/62(79) NSR 0 (11) 10(A) , No pain 10:52:41 90 21 97 108/66(82) NSR 0 (11) 10(A) , No pain 10:53:52 89 16 96 101/67(84) NSR 0 (11) 10(A) , No pain Medications Time Medication Route Dose Verified Delivered Reason Notes Effectiveness by by 10:14:15 Oxygen NC 2 Chandana Richardson Per physician l/min Shiela Rae RN 10:14:25 Heparin Flush added 2 Chandana Cairey used for Bag to bags Shiela Kuo MD procedure (1000units/500ml field NS) 10:14:32 Lidocaine 2% added 20ml Chandana Chandana for local to vial Shiela Kuo MD anesthetic field 10:14:39 Benadryl I.V. 50 mg Chandana Debra Per physician Shiela Rae RN 10:27:33 Versed I.V. 1 mg Chandana Debra for sedation Shiela Rae RN 10:27:47 Fentanyl I.V. 50 Chandana Debra for sedation mcg Shiela Rae RN 10:29:01 Fentanyl I.V. 50 Chandana Debra for sedation mcg Shiela Rae RN 10:29:42 Versed I.V. 1 mg Chandana Debra for sedation Shiela Rae RN 10:30:10 Heparin Bolus I.V. 4000 Chandana Debra for dose units Shiela Rae RN anticoagulation verified with dr kuo 10:31:24 Versed I.V. 1 mg Chandana Debra for sedation Shiela Rae RN 10:31:31 Fentanyl I.V. 50 Chandana Debra for sedation mcg Shiela Rae RN 10:33:29 Versed I.V. 1 mg Chandana Debra for sedation Shiela Rae RN 10:33:36 Fentanyl I.V. 50 Chandana Debra for sedation mcg Shiela Rae RN 10:35:23 Versed I.V. 1 mg Chandana Debra for sedation Shiela Rae RN 10:35:28 Fentanyl I.V. 50 Chandana Debra for sedation mcg Shiela Rea RN 10:37:31 Versed I.V. 1 mg Chandana Debra for sedation Shiela Rae RN 10:37:46 Fentanyl I.V. 50 Chandana Debra for sedation mcg Shiela Rae RN 10:44:31 Versed I.V. 1 mg Chandana Debra for sedation Shiela Rae RN 10:46:15 Versed I.V. 1 mg Chandana Debra for sedation Shiela Rae qa auditor Log Time Note 10:05:12 Admit Source: Other 10:05:43 ACC Patient presents with Stable Angina CCS Anginal Class 2--Slight limitation of ordinary activity. 10:05:46 Diagnostic Cath status Elective 10:05:49 Rush Herman RT(R) sent for patient. Start room use. 10:05:50 Time tracking: Regular hours 10:05:55 Plan of Care:Hemodynamics will remain stable., Cardiac rhythm will remain stable., Comfort level will be maintained., Respiratory function will remain adequate., Patient/ family verbilizes understanding of procedure., Procedure tolerated without complication., Recovers from procedure without complications.. 10:05:59 Patient received from Outpatients to [facility] 2 Alert and oriented. Tansferred to table in Supine position. 10:06:00 Warm blankets applied, and luisana hugger turned on for patient comfort. 10:06:01 Correct patient and procedure confirmed by team. 10:06:03 Signed procedure consent form obtained from patient. 10:06:30 H&P Date Dictated: 08/16/2016 Within 30 days and on chart., H&P Addendum completed by physician on day of procedure. (MUST COMPLETE FOR ALL OUTPATIENTS). 10:06:31 Pre-procedure instructions explained to patient. 10:06:34 Family in waiting room. 10:06:36 Patient NPO since Midnight. 10:06:49 Patient allergic to No known allergies 10:06:54 Is the patient allergic to Iodine/contrast media? No. 10:08:13 Is patient on blood thinner?Yes 10:08:20 Patient diabetic? No. 10:08:23 Snore? Yes 10:08:25 Sleep apnea? No 10:08:29 Previous problem with sedation/anesthesia? No ? 10:08:33 Deviated septum? No 10:08:35 Opens mouth fully? Yes 10:08:36 Sticks out tongue? Yes 10:08:45 Patient pain scale 0/10 ?. 10:14:06 Vital chart was started 10:14:15 Oxygen 2 l/min NC was given by Debra Rae RN; Per physician; 10:14:25 Heparin Flush Bag (1000units/500ml NS) 2 bags added to field was given by Chandana Kuo MD; used for procedure; 10:14:28 IV patent on arrival in left forearm with 0.9% [facility] at [facility]. 10:14:32 Lidocaine 2% 20ml vial added to field was given by Chandana Kuo MD; for local anesthetic; 10::39 Benadryl 50 mg I.V. was given by Debra Rae RN; Per physician; 10::43 Lab results completed and on chart. 10:14:48 Right groin area was prepped with chlora-prep and draped in sterile fashion 10::50 Alarms reviewed by R. N. 10::58 Sharps counted by scrub and verified by R.N. 10:15:03 Use device set Femoral PCI 10:15:04 Acist Syringe opened to sterile field. 10:15:05 Acist Hand Control opened to sterile field. 10:15:06 Bag Decanter opened to sterile field. 10:15:07 Cardinal Cath Pack opened to sterile field. 10:15:10 Terumo 6Fr Morning View Sheath opened to sterile field. 10:15:11 St Live 260cm J .035 wire opened to sterile field. 10:15:13 Merit BasixCompak Inflation Kit opened to sterile field. 10:15:14 Acist Manifold opened to sterile field. 10:15:15 Tegaderm 4 x 4 opened to sterile field. 10:15:27 Daniels Whisper J 300cm 0.014 guide wire opened to sterile field. 10:20:37 ECG and BP/O2 sat monitors applied to patient. 10:20:42 Baseline sample Acquired. 10::48 Rhythm: sinus rhythm 10:20:50 Full Disclosure recording started 10:21:05 Physician paged 10:27:00 Zero performed for pressure channel P1 10::21 Physician arrived 10::21 --------ALL STOP TIME OUT------ 10::22 Final Timeout: patient, procedure, and site verified with staff and physician. All members of the team are in agreement. 10:27:25 Right groin site verified by team. 10:27:29 Physical assessment completed. ASA score P 2 - A patient with mild systemic disease as per Chandana Kuo MD. 10::33 Versed 1 mg I.V. was given by Debra Rae RN; for sedation; 10:27:33 Sedation plan: IV Moderate Sedation Versed, Fentanyl 10:27:47 Fentanyl 50 mcg I.V. was given by Debra Pickens RN; for sedation; 10:28:42 Procedure started. 10:28:47 Local anesthetic to right femoral artery with Lidocaine 2% by Chandana Kuo MD.INITIAL ACCESS ONLY 10:28:59 A 7 Fr Short sheath was inserted into the Right Femoral artery 10:29:01 Fentanyl 50 mcg I.V. was given by Debra Rae RN; for sedation; 10:29:17 Terumo 7Fr Morning View Destination Sheath opened to sterile field. 10:29:36 Medtronic Launcher 7Fr EBU 3.5 guide catheter opened to sterile field. 10::42 Versed 1 mg I.V. was given by Debra Rae RN; for sedation; 10:30:10 Heparin Bolus 4000 units I.V. was given by Debra Rae RN; for anticoagulation; dose verified with dr kuo 10:30:11 7 Fr EBU 3.5 guide catheter was inserted over the wire 10:30:18 Whisper wire advanced. 10:30:29 Wire advanced across lesion. 10:31:24 Versed 1 mg I.V. was given by Debra Rae RN; for sedation; 10:31:31 Fentanyl 50 mcg I.V. was given by Debra Rae RN; for sedation; 10:33:29 Versed 1 mg I.V. was given by Debra Rae RN; for sedation; 10:33:36 Fentanyl 50 mcg I.V. was given by Debra Rae RN; for sedation; 10:34:42 Inflation number: 1 A [place] Sci Gasconade 3.0 X 9 balloon was prepped and advanced across the Mid LAD, then inflated to 17 FORREST for 0:10 (min:sec). 10:34:56 Balloon removed over the wire. 10:35:23 Versed 1 mg I.V. was given by Debra Rae RN; for sedation; 10:35:28 Fentanyl 50 mcg I.V. was given by Debra Rae RN; for sedation; 10:37:31 Versed 1 mg I.V. was given by Debra Rae RN; for sedation; 10:37:46 Fentanyl 50 mcg I.V. was given by Debra Rae RN; for sedation; 10:42:26 Inflation number: 1 A Euphora 1.5 x 20 Balloon was prepped and advanced across the Dist LAD, then inflated to 17 FORREST for 0:10 (min:sec). 10:42:35 Inflation number: 2 The Euphora 1.5 x 20 Balloon was reinflated across the Dist LAD, to 17 FORREST for 0:10 (min:sec). 10:43:05 Inflation number: 3 The Euphora 1.5 x 20 Balloon was reinflated across the Dist LAD, to 21 FORREST for 0:10 (min:sec). 10:43:28 Balloon removed over the wire. 10:44:31 Versed 1 mg I.V. was given by Debra Rae RN; for sedation; 10:45:33 Inflation number: [address] Vibes Gasconade 2.0 X 15 balloon was prepped and advanced across the Dist LAD, then inflated to 13 FORREST for 0:10 (min:sec). 10:45:52 Balloon removed over the wire. 10:46:15 Versed 1 mg I.V. was given by Debra Rae RN; for sedation; 10:47:26 Inflation Number: 5 A Promus Premier OTW 2.25 x 24 stent was prepped and advanced across the Dist LAD. The stent was deployed at 17 FORREST for 0:10 (min:sec). 10:49:46 Inflation Number: 1 A Promus Premier OTW 2.5 x 24 stent was prepped and advanced across the Dist LAD1. The stent was deployed at 21 FORREST for 0:10 (min:sec). 10:50:38 Wire removed. 10:50:39 Guide catheter removed. 10:52:29 Cordis 7Fr Exoseal opened to sterile field. 10:52:42 Sheath removed intact; hemostasis achieved with Exoseal to the Right Femoral artery. 10:52:45 Procedure ended.(Physican Out) 10:52:50 Fluoroscopy time 12.60 minutes. 10:52:56 Fluoroscopy dose: 1 mGy 10:52:56 Flurop Dose total: 2060 10:53:01 Contrast amount:Isovue 300 165ml. 10:53:02 Sharps counted by scrub and verified by R.N. 10:53:05 Insertion/operative site no bleeding no hematoma. 10:53:09 Post-op/insertion site Right Femoral artery dressed using a 4 x 4 and Tegaderm. 10:53:12 Post Procedure Pulses reassessed and unchanged 10:53:17 Post-procedure physical assessment completed. ASA score P 2 - A patient with mild systemic disease as per Chandana Kuo MD. 10:53:22 Post procedure rhythm: unchanged. 10:53:25 Estimated blood loss: 10 ml 10:53:27 Post procedure instruction explained to patient.Patient verbalizes understanding. 10:53:29 Patient needs reinforcement of post procedure teaching. 10:53:34 Procedure and supply charges have been captured, reviewed, submitted and are correct. 10:54:02 Procedure Complication : No complications 10:54:05 Vital chart was stopped 10:54:07 See physician's report for complete and final results. 10:54:10 Report given to Post Procedure Room. 10:54:13 Patient transfered to Post Procedure Room with Stretcher. 10:54:16 Procedure ended. 10:54:16 Full Disclosure recording stopped 10:54:22 End room use (Document Last) 10:54:22 End room use (Document Last) Intervention Summary Intervention Notes Time ActionType Lesion and Equipment Action# Pressure Duration Attributes Used 10:34:42 Inflate Mid LAD [place] 1 17 00:10 balloon Sci Gasconade 3.0 X 9 balloon 10:42:26 Inflate Dist LAD Euphora 1 17 00:10 balloon 1.5 x 20 Balloon 10:42:35 Reinflate Dist LAD Euphora 2 17 00:10 balloon 1.5 x 20 Balloon 10:43:05 Reinflate Dist LAD Euphora 3 21 00:10 balloon 1.5 x 20 Balloon 10:45:33 Inflate Dist LAD [place] 4 13 00:10 balloon Sci Gascon[place] 2.0 X 15 balloon 10:47:26 [address] stent Dist LAD Promus 5 17 00:10 Premier OTW 2.25 x 24 stent 10:49:46 Place stent Dist LAD1 Promus 1 21 00:10 Premier OTW 2.5 x 24 stent Device Usage Item Name Manufacture Quantity Catalog Number Hospital Part Current Mini mal Lot# / Charge Number Stock Stock Serial# Code Acist Acist 1 48030 246980 080752 344801 20 Syringe Medical Systems Inc Acist Hand Acist 1 06824 843919 139862 717652 5 Metal Resources Inc Bag Microtek 1 553387 09777 282554 5 NantWorks Inc. Cardinal Cardinal 1 [id number] 732110 27105 111981 5 Cath Pack Health Terumo 6Fr Terumo 1 JPS608 236981 875779 588727 [address] Live St Live 1 170379 586447 454937 405850 30 260cm J .[address] [facility] 1 [id number] 350748 264152 724924 15 BasixCompak Medical Inflation Kit Acist Acist 1 47004 562756 397354 517488 5 LiveStories Systems Inc Tegaderm 4 3M 1 1626W 955894 947270 998105 5 x 4 Daniels Daniels 1 [id number] 224148 043795 477789 5 Whisper J Vascular 300cm 0.014 guide wire Terumo 7Fr Terumo 1 RSR04 274230 974563 837415 5 Morning View Destination Sheath Medtronic Medtronic 1 [id number] 380933 913593 484210 0 Launcher 7Fr EBU 3.5 guide catheter [place] Sci [place] 1 [id number] 081127 755373 253685 1 [id number] Gasconade Scientific 3.0 X 9 balloon Euphora 1.5 Medtronic 1 [id number] 693303 794389 478211 5 [id number] x 20 Balloon [place] Sci [place] 1 [id number] 531639 924895 457271 1 [id number] Gasconade Scientific 2.0 X 15 balloon Promus [place] 1 [id number] 577371 031389 5 [id number] Premier OTW Scientific 2.25 x 24 stent Promus [place] 1 [id number] 373565 429151 5 [id number] Premier OTW Scientific 2.5 x 24 stent Cordis 7Fr Cardinal 1 [id number] 820438 817836 555154 5 [facility] Signature Audit [place] Stage Time Signature Unsigned Intra-Procedure 08/24/2016 Deena Barkley 10:55:04 AM RT(R) Signatures Monitor : Deena Barkley Signature : RT Date : Time : [facility] [address] [place] [address]
[~2016-08-24 06:57] MED LIST changes: +ATIVAN0.5 MG PO; +LISINOPRIL5 MG PO; +NITROSTAT0.4 MG SL; +PEPCID40 MG PO
[2016-08-24 07:33] LABS: BASOPHILS 0.6 % (0.0-2.0); HEMATOCRIT 47.6 % (42.0-54.0); HEMOGLOBIN 16.8 g/dL (13.5-17.5); IMMATURE GRANULOCYTES 0.2 % (0-5); LYMPHOCYTES 17.2 % (15-50); MCH 32.8 pg (26.0-34.0); MCHC 35.3 g/dL (31.0-37.0); MEAN PLATELET VOLUME 10.5 fL (7.4-10.4); MONOCYTES 8.7 % (2-11); NEUTROPHILS 70.3 % (40-80); RBC 5.12 10x6/uL (4.20-6.10); RDW 12.1 % (11.5-14.5); WBC 8.5 10x3/uL (4.8-10.8)
[2016-08-24 07:41] LABS: PLATELET COUNT 239 10x3/uL (130-400)
[2016-08-24 07:44] LABS: CALCIUM 9.2 mg/dL (8.5-10.1); CARBON DIOXIDE 28.2 mmol/L (21.0-32.0); CREATININE - SERUM 1.2 mg/dL (0.6-1.3); POTASSIUM - SERUM 4.2 mmol/L (3.5-5.1)
[2016-08-24 09:08] VITALS: BP 131/77; Ht 180.3 cm; Wt 111.4 kg
--- NOTE | 2016-08-24 11:15 | NUR ---
RESTING IN BED QUIETLY. VSS. ON 2L NC, NO RESP DISTRESS NOTED. RIGHT GROIN DRSG CDI, NO HEMATOMA NOTED. INSTRUCTED PT TO KEEP RIGHT LEG STRAIGHT AND HEAD FLAT ON PILLOW. WILL CONTINUE TO MONITOR.
--- NOTE | 2016-08-24 11:46 | NUR ---
RESTING IN BED WITH EYES CLOSED, VSS. 2L NC, NO RESP DISTRESS NOTED. NO C/O AT THIS TIME. RIGHT GROIN CDI. NO HEMATOMA NOTED. WILL CONTINUE TO MONITOR.
--- NOTE | 2016-08-24 12:00 | NUR ---
VSS, NO C/O NAUSEA OR CHEST PAIN. RIGHT GROIN CDI, NO HEMATOMA NOTED. WILL CONTINUE TO MONITOR.
--- NOTE | 2016-08-24 12:33 | NUR ---
VSS. NO C/O AT THIS TIME. RIGHT GROIN DRSG CDI. NO HEMATOMA NOTED. 2L NC, NO RESP DISTRESS.
--- NOTE | 2016-08-24 13:29 | NUR ---
7 FR EXOSEAL R/GROIN CDI NO BLEEDING NO HEMATOMA NOTED. CHEST PAIN IS DENIED. TOLERATING ORAL FLUIDS HR 65 BP 106/64 FAMILY AT SIDE
--- NOTE | 2016-08-24 14:12 | NUR ---
HOB ELEVATED TO 30DEGREES, NC REMOVED. ROOM AIR WITH NO DISTRESS. EATING SANDIWCH WITH ASSIST FROM AT BEDSIDE. VITALS ALL WNL. R GROIN REMAINS C/D/I WITH NO HEMATOMA OR BLEEDING.
--- NOTE | 2016-08-24 14:55 | NUR ---
PIV REMOVED FROM LEFT ARM WITH DRESSING APPLIED. CHEST PAIN IS DENIED 7 FR EXOSEAL R/GROIN CDI NO BLEEDING NO HEMATOMA NOTED. PATIENT IS UP TO GET DRESSED FOR DISCHARGE HOME
--- NOTE | 2016-08-24 14:58 | NUR ---
DISHCARGE INSTRUCTIONS GONE OVER WITH PATIENT AND BOTH VERBLIZED UNDERSTANDING OF INSTRUCTIONS. CHEST PAIN IS DENIED. 7 FR EXOSEAL R/GROIN CDI NO BLEEDING NO HEMATOMA NOTED PATIENT LEFT VIA WC TO [facility] FOR TO DRIVE HOME
--- NOTE | 2016-08-27 11:12 | HP ---
PATIENT: HENRIETTA WASHBURN MEDICAL RECORD: [id number] ACCOUNT: [id number] LOCATION:MIGUEL A : 56 ADMISSION DATE: 08/24/16 HISTORY AND PHYSICAL EXAMINATION ADMITTING DIAGNOSES: 1. Angina. 2. Coronary artery disease. 3. Recent percutaneous transluminal coronary angioplasty stent, right coronary artery and left circumflex with concomitant disease, left anterior descending. 4. Hypertension. 5. Hyperlipidemia. HISTORY OF PRESENT ILLNESS: Mr. Washburn presents with unstable anginal symptomatology. Last week, he underwent PTCA stent of the left circumflex and RCA. He is now brought back for PTCA stent of the LAD. PHYSICAL EXAMINATION: GENERAL APPEARANCE: Well-nourished, well-developed, appears stated age. Level of distress, comfortable. PSYCHIATRIC: Mental status, alert, normal affect. Orientation, oriented to time, place and person. EYES: Lids and conjunctiva, noninjected. No discharge, no pallor. ENT: Lips, teeth, gums, normal dentition. Oropharynx, no cyanosis, no pallor. NECK: Carotid arteries, bilateral normal upstroke, no bruits, no thrills. JUGULAR VEINS: No jugular venous pressure or distention. CERVICAL LYMPH NODES: Nontender, nonenlarged. THYROID: Not enlarged. Nontender. No nodules. LUNGS: Respiratory effort, unlabored. CHEST: Normal curvature. No thoracic deformity. No chest wall tenderness. Percussion, resonant. Auscultation, clear. No wheezes, no rales, no rhonchi. CARDIOVASCULAR: Precordial exam, nondisplaced. No heaves or pericardial thrills. Rate and rhythm, regular. Heart sounds, normal S1, normal S2. No S3, no gallop, no rub. Systolic murmur, not heard. Diastolic murmur, not heard. EXTREMITIES: No cyanosis, no edema. Peripheral pulses, full and equal in all extremities, except as noted. No bruits appreciated. ABDOMEN: Soft, nondistended. Normal aorta. No bruit. Nontender. No masses. Liver, nontender, no hepatomegaly. Spleen, nontender, no splenomegaly. MUSCULOSKELETAL: No joint tenderness. No joint swelling. No erythema. NEUROLOGICAL: Normal gait, normal strength, normal tone. SKIN: Warm and dry. REVIEW OF SYSTEMS: The patient reports easy bruising but reports no swollen glands. The patient reports no fever, no night sweats, no significant weight gain, no significant weight loss. No significant exercise tolerance. The patient reports no dry eyes, no irritation, no vision change. Patient reports no difficulty hearing and no ear pain. Patient reports no frequent nose bleeds or nose and sinus problems. Patient reports on arm pain on exertion. No shortness of breath while lying down. No history of heart murmur. Patient reports no cough, no wheezing or coughing up blood. Patient reports no abdominal pain, no vomiting. Normal appetite. No diarrhea and not vomiting blood. No nausea and no constipation. Patient reports no incontinence. No difficulty urinating. No hematuria. No increased frequency. Patient reports no muscle aches. No weakness, no arthralgias, no back pain. No swelling of the extremities. Patient reports no abnormal mole, no jaundice, no rashes. Reports HISTORY AND PHYSICAL [id number] WASHBURNHENRIETTA Bhaskar no loss of consciousness. No weakness and no numbness. No seizures, dizziness, or headaches. The patient reports no depression, no sleep disturbance, feeling safe in a relationship and no alcohol abuse. Patient reports on fatigue. Reports no runny nose or sinus pressure. No itching, no hives, and no frequent sneezing. OVERALL IMPRESSION: Anginal symptomatology with critical disease of the left anterior descending. We will proceed with transcatheter revascularization of the left anterior descending. TRANSINT:[id number] Voice Confirmation ID: [id number] DOCUMENT ID: [id number] DYLAN TIAN MD at 1112 CC: [id number] DICTATION DATE: 08/24/16931 ORAL AND MAXILLOFACIAL SURGERY: 08/24/16 1006 DEP CLI 08/24/16 [facility] [address] [place] [address]
--- NOTE | 2016-08-27 11:12 | OP ---
PATIENT NAME: HENRIETTA WASHBURN MEDICAL RECORD: [id number] :56 LOCATION:D.CAT ADMISSION DATE: SURGEON: DYLAN TIAN MD DATE OF OPERATION: 08/24/2016 PROCEDURES: 1. PTCA stent LAD. 2. Selective coronary angiography. DESCRIPTION OF THE PROCEDURE: After informed consent was obtained and after detailed explanation of risks, benefits as well as alternative therapies, the patient elected to proceed with angiogram and angioplasty. The right femoral area was prepped and draped in normal sterile fashion. The right femoral artery was cannulated via modified Seldinger technique with placement of a 7-Uzbek sheath. All catheters exchanged through this sheath. FINDINGS: The left anterior descending has multiple areas of 80+ percent stenosis in the mid distal vessel. This was covered with a 2.5 x 24 and 2.25 x 24, both were Promus drug-eluting stents. Result was 0% residual stenosis. OVERALL IMPRESSION: Successful percutaneous transluminal coronary angioplasty stent of the left anterior descending going from multiple areas of 80% initial stenosis to 0% residual. TRANSINT:[id number] Voice Confirmation ID: [id number] DOCUMENT ID: [id number] DYLAN TIAN MD at 1112 CC: [id number] DICTATION DATE: 08/24/16 1055 VIRTUAL ASSISTANT FOR ADVERTISERS: 08/24/16 1313 DEP CLI 08/24/[address] [address]
== END 2016-08-24 15:01 | disposition home or self-care (01) ==
LOC: D.CATH 06:57
PROVIDERS: Internal Medicine Interventional Cardiology
DX: I25.119 Atherosclerotic heart disease of native coronary artery with unspecified angina pectoris (principal); I10 Essential (primary) hypertension; Z95.5 Presence of coronary angioplasty implant and graft; E78.5 Hyperlipidemia, unspecified

== ENCOUNTER 2016-08-29 13:17 | Emergency (ER) | payer OTHER ==
[2016-08-24 09:08] VITALS: BMI 34.2
[2016-08-29 16:27] LABS: BASOPHILS 0.5 % (0.0-2.0); EOSINOPHILS 2.4 % (0-7); HEMATOCRIT 43.9 % (42.0-54.0); HEMOGLOBIN 15.7 g/dL (13.5-17.5); IMMATURE GRANULOCYTES 0.3 % (0-5); LYMPHOCYTES 11.1 % (15-50); MCH 33.3 pg (26.0-34.0); MCHC 35.8 g/dL (31.0-37.0); MCV 93.2 fL (80.0-100.0); MEAN PLATELET VOLUME 10.6 fL (7.4-10.4); MONOCYTES 6.4 % (2-11); NEUTROPHILS 79.3 % (40-80); PLATELET COUNT 210 10x3/uL (130-400); RBC 4.71 10x6/uL (4.20-6.10); RDW 12.2 % (11.5-14.5); WBC 11.9 10x3/uL (4.8-10.8)
== END 2016-08-29 17:52 | disposition home or self-care (01) ==
LOC: D.ER 13:17
PROVIDERS: Nurse Practitioner Family
DX: G89.18 Other acute postprocedural pain (principal); L76.32 Postprocedural hematoma of skin and subcutaneous tissue following other procedure; I10 Essential (primary) hypertension; E78.5 Hyperlipidemia, unspecified; I24.9 Acute ischemic heart disease, unspecified

== ENCOUNTER → 2017-03-30 17:38 | Outpatient (CLI) | payer OTHER ==
[2016-08-24 09:08] VITALS: BMI 34.2
[2017-03-30 19:41] LABS: CHOL - HDL RATIO 2.4 ratio (2.3-4.9); LDL-HDL RATIO 1.2 ratio (1.5-3.5)
== END | disposition home or self-care (01) ==
LOC: D.LABREF 17:38
PROVIDERS: Internal Medicine Interventional Cardiology
DX: I10 Essential (primary) hypertension (principal)

== ENCOUNTER 2017-06-17 13:03 | Emergency (ER) | payer OTHER ==
[2016-08-24 09:08] VITALS: BMI 34.2
[2017-06-17 13:51] LABS: BASOPHILS 0.5 % (0-2); HEMATOCRIT 43.4 % (42.0-54.0); HEMOGLOBIN 15.1 g/dL (13.5-17.5); IMMATURE GRANULOCYTES 0.1 % (0-5); LYMPHOCYTES 11.2 % (15-50); MCH 33.2 pg (26.0-34.0); MCHC 34.8 g/dL (31.0-37.0); MCV 95.4 fL (80.0-100.0); MEAN PLATELET VOLUME 10.2 fL (7.4-10.4); MONOCYTES 7.8 % (2-11); NEUTROPHILS 78.4 % (40-80); PLATELET COUNT 182 10x3/uL (130-400); RBC 4.55 10x6/uL (4.20-6.10); RDW 12.3 % (11.5-14.5)
[2017-06-17 14:15] LABS: ALKALINE PHOSPHATASE 69 U/L (46-116); ALT (SGPT) 31 U/L (10-68); CALC OSMOLALITY 278 mosm/kg (275-300); CALCIUM 8.8 mg/dL (8.5-10.1); CARBON DIOXIDE 28.9 mmol/L (21.0-32.0); CHLORIDE - SERUM 105 mmol/L (98-107); CREATININE - SERUM 1.1 mg/dL (0.6-1.3); GLUCOSE 124 mg/dL (74-106); POTASSIUM - SERUM 4.3 mmol/L (3.5-5.1); PROTEIN - SERUM 7.1 g/dL (6.4-8.2); SODIUM 140 mmol/L (136-145); UREA NITROGEN 11 mg/dL (7-18); eGFR NON AFRICAN AMERICAN 73 mL/min (90-120)
[2017-06-17 14:19] LABS: CHOL - HDL RATIO 2.7 ratio (2.3-4.9); CHOLESTEROL, TOTAL 137 mg/dL (0-200); CKMB 0.7 U/L (0.0-3.6); CREATINE KINASE 115 UL (21-232); HDL CHOLESTEROL 51 mg/dL (32-96); LDL CHOLESTEROL 76 mg/dL (0-100); LDL-HDL RATIO 1.5 ratio (1.5-3.5); TRIGLYCERIDE 52 mg/dL (30-200); TROPONIN-I < 0.017 ng/mL (0.000-0.060)
== END 2017-06-17 14:52 | disposition home or self-care (01) ==
LOC: D.ER 13:03
PROVIDERS: Family Medicine
DX: R07.9 Chest pain, unspecified (principal); I20.8 Other forms of angina pectoris; I10 Essential (primary) hypertension; R00.1 Bradycardia, unspecified

== ENCOUNTER → 2018-08-24 08:05 | Outpatient (CLI) | payer BC ==
[2016-08-24 09:08] VITALS: BMI 34.2
[~2018-08-24 08:05] MED LIST changes: +BYSTOLIC5 MG PO
--- NOTE | 2018-08-31 17:10 | ST ---
PATIENT:HENRIETTA WASHBURN MEDICAL RECORD: [id number] SEX: M LOCATION:[facility] ORDER #: ADMISSION DATE: 08/24/18 AGE OF PATIENT: 58 REFERRING PHYSICIAN: INTERPRETING PHYSICIAN: DYLAN TIAN MD DATE OF SERVICE: 08/24/2018 PROCEDURES: Nuclear Stress Test INDICATION: Angina, coronary artery disease, hypertension, and hyperlipidemia. He was exercised on standard Neri protocol for 7 minutes 45 seconds completing greater than 85% max target heart rate response with 32 mCi of sestamibi injected at peak stress, 11 mCi were used previously for rest images. FINDINGS: Gated SPECT reveals a preserved ejection fraction of 58% with decreased wall motioning and thickening throughout the inferior segments. SPECT IMAGING: Cardiolite was used as myocardial perfusion agent. There is a mixed perfusion defect inferiorly and apically. This is partially fixed, partially reversible. This includes the basal, mid, apical, inferior segments as well as the apex itself. There is no significant reversible ischemia present. OVERALL IMPRESSION: 1. This is an abnormal nuclear stress test and shows a partially fixed, partially reversible defect inferiorly and apically. 2. Gated SPECT reveals preserved ejection fraction at 58%. In this patient with ongoing symptomatology, the current scan does suggest the presence of hemodynamically significant coronary artery disease. We will proceed with coronary angiography as followup study. TRANSINT:[id number] Voice Confirmation ID: [id number] DOCUMENT ID: [id number] DYLAN TIAN MD at 1710 CC: [id number] DICTATION DATE: 08/25/18 1323 RESIDENT CARE SPEC: 08/26/18 [id number] DEP CLI 08/24/18 [place] [id number] [place] [id number]
== END | disposition home or self-care (01) ==
LOC: D.HCCARDIO 08-18 08:30
DX: I25.10 Atherosclerotic heart disease of native coronary artery without angina pectoris (principal)

== ENCOUNTER 2018-08-30 07:33 | Outpatient (CLI) | payer BC ==
[~2018-08-30] VITALS: Ht 180.3 cm; Wt 109.1 kg
--- NOTE | ~2018-08-30 | HEMODYNAMI ---
PATIENT:HENRIETTA WASHBURN MEDICAL RECORD: [id number] : 56 LOCATION:D.CAT ADMISSION DATE: 08/30/18 Generatedon:08/30/201810:41 Patient name: HENRIETTA WASHBURN Patient #: [id number] : 1960 Date of study: 08/30/2018 Page: Of Hemodynamic Procedure Report Patient Data Patient Demographics Procedure consent was obtained First Name: HENRIETTA Gender: Male Last Name: MADDISON : 1960 [facility] Initial: D Age: 58 year(s) Patient #: [id number] Race: SSN: [id number] Additional ID: [id number] Contact details Address: [address] [place] [address] ROAD State: [facility] Zip code: [address] Past Medical History Allergies Allergen Reaction Date Comments Reported Other allergy 08/30/2018 LISINOPRIL Admission Admission Data Admission Date: 08/30/2018 Admission Time: 7:33 Height (in.): 71 BSA: 2.35 (m2) Height (cm.): 180.34 BMI: 35.84 (kg/m2) Weight (lbs.): 257 Weight (kg.): 116.57 Lab Results Lab Result Date: 08/30/2018 Lab Result Time: 0:00 Biochemistry Name Units Result Min Max BUN mg/dl 16 --(---*)-- 7 18 Creatinine mg/dl 1.3 --(---*)-- 0.6 1.3 CBC Name Units Result Min Max Hemoglobin g/dl 15.8 --(--*-)-- 13.5 17.5 Procedure Procedure Types Cath Procedure Diagnostic Procedure [facility] w/Coronaries FFR/IVUS Intra-Coronary IVUS Initial Intra-Coronary IVUS Additional Sedation Charges Moderate Sedation up to 15 minutes PCI Procedure Coronary Stent Coronary Stent Initial Coronary Stent Additional Procedure Description Procedure Date Procedure Date: 08/30/2018 Procedure Start Time: 10:11 Procedure End Time: 10:39 Procedure Staff Name Function Chandana Kuo MD Performing Physician Trudy Palacios RT Monitor Himanshu Garrett RT Scrub Zully Islas RN Nurse Procedure Data Cath Procedure Fluoroscopy Diagnostic fluoroscopy Total fluoroscopy Time: 8.1 time: 8.1 min min Diagnostic fluoroscopy Total fluoroscopy dose: dose: 1072 mGy 1072 mGy Contrast Material Contrast Material Type Amount (ml) Isovue 300 137 Entry Location Entry Primary Successful Side Size Upsize Upsize Entry Closure Jenkins ccessful Closure Location (Fr) 1 (Fr) 2 (Fr) Remarks Device Remarks Radial Right 6 Fr Mechanical artery Short Compression Estimated blood loss: 8 ml Diagnostic catheters Device Type Used For End Catheter Placement DIAGNOSTIC 5FR Infinity Procedure RBL-TG ([id number]) DIAGNOSTIC [place] 110cm 5 Procedure Fr catheter ([id number]) Procedure Complications No complications Procedure Medications Medication Administration Route Dosage 0.9% NaCl I.V. 100 ml/hr Oxygen etCO2 Nasal cannula 2 l/min Lidocaine 2% added to field 20 Heparin Flush Bag added to field 2 bags (1000units/500ml NS) Radial Cocktail added to field 1 syringe (Verapomil 2mg/Nitro 400mcg/Heparin 1500units) Versed I.V. 2 mg Fentanyl I.V. 50 mcg Versed I.V. 2 mg Fentanyl I.V. 50 mcg Versed I.V. 2 mg Fentanyl I.V. 50 mcg Versed I.V. 2 mg Heparin Bolus I.V. 4000 units Hemodynamics Rest BSA: 2.35 (m2) HGB: 15.8 (g/dl) O2 Consumption: Estimated: 260.59 (ml/min) O2 Co nsumption indexed: Estimated:110.89 (ml/min/m) Heart Rate: 52 (bpm) Snapshots Pre Cath Intra NCS Post Cath Vital Signs Time Heart Resp SPO2 etCO2 NIBP (mmHg) Rhythm Pain Sedation Rate (ipm) (%) (mmHg) Status Level (bpm) 9:42:44 54 20 98 17.1 136/76(98) SB 0 (11) 10(A) , No pain 9:45:16 51 16 100 32.1 138/80(101) SB 0 (11) 10(A) , No pain 9:49:34 52 11 99 35.8 121/69(88) SB 0 (11) 10(A) , No pain 9:53:46 53 13 97 39.5 112/73(83) SB 0 (11) 10(A) , No pain 9:58:00 55 12 96 38 117/70(82) SB 0 (11) 10(A) , No pain 10:02:14 56 11 97 39.5 106/62(83) SB 0 (11) 10(A) , No pain 10:06:28 52 12 96 38.8 104/64(83) SB 0 (11) 10(A) , No pain 10:10:44 55 11 96 38.1 106/61(79) SB 0 (11) 10(A) , No pain 10:14:56 62 11 97 21.6 96/65(80) NSR 0 (11) 10(A) , No pain 10:19:10 58 19 98 20.7 96/54(74) SB 0 (11) 9(A) , No pain 10:23:22 65 15 98 21.3 101/58(74) NSR 0 (11) 9(A) , No pain 10:27:34 66 11 98 22.4 100/63(77) NSR 0 (11) 10(A) , No pain 10:31:48 61 11 97 42.5 97/61(79) NSR 0 (11) 9(A) , No pain 10:35:59 61 18 98 38 106/59(78) NSR 0 (11) 10(A) , No pain Medications Time Medication Route Dose Verified Delivered Reason Not es Effectiveness by by 9:44:40 0.9% NaCl I.V. 100 Chandana Zully used for ml/hr Shiela Islas building service worker 9:44:47 Oxygen etCO2 2 l/min Chandana Zully used for Nasal Shiela Islas procedure cannula RN 9:44:52 Lidocaine 2% added 20ml Chandana Ellington for local to vial Shiela Kuo MD anesthetic field 9:44:57 Heparin Flush added 2 bags Chandana Ellington used for Bag to Shiela Kuo MD procedure (1000units/500ml field NS) 9:45:03 Radial Cocktail added 1 Chandana Ellington used for (Verapomil to syringe Shiela Kuo MD procedure 2mg/Nitro field 400mcg/Heparin 1500units) 10:08:38 Versed I.V. 2 mg Chandana Zully for sedation Shiela Islas RN 10:08:49 Fentanyl I.V. 50 mcg Chandana Zully for sedation Shiela Islas RN 10:12:36 Versed I.V. 2 mg Chandana Zully for sedation Shiela Islas RN 10:12:40 Fentanyl I.V. 50 mcg Chandana Zully for sedation Shiela Islas RN 10:16:33 Versed I.V. 2 mg Chandana Zully for sedation Shiela Islas RN 10:16:38 Fentanyl I.V. 50 mcg Chandana Zully for sedation Shiela Islas RN 10:27:27 Versed I.V. 2 mg Chandana Zully for sedation Shiela Islas RN 10:27:31 Heparin Bolus I.V. 4000 Chandana Zully for rocky ified units Shiela Islas anticoagulation with Dr. NUVIA Kuo Procedure Log Time Note 9:27:24 Signed procedure consent form obtained from patient. 9:27:26 Time tracking: Regular hours (M-F 7:00 - 5:00) 9:27:30 Plan of Care:Hemodynamics will remain stable., Cardiac rhythm will remain stable., Comfort level will be maintained., Respiratory function will remain adequate., Patient/ family verbilizes understanding of procedure., Procedure tolerated without complication., Recovers from procedure without complications.. 9:27:32 Diagnostic Cath status Elective 9:27:47 H&P Date Dictated: 07/26/2018 Within 30 days and on chart., H&P Addendum completed by physician on day of procedure. (MUST COMPLETE FOR ALL OUTPATIENTS). 9:29:04 Patient Height : 71 inches 9:29:08 Patient Weight : 257 lbs 9:29:25 Patient allergic to Other allergyLISINOPRIL 9:30:25 Lab Result : Creatinine 1.3 mg/dl 9:30:25 Lab Result : BUN 16 mg/dl 9:30:25 Lab Result : Hemoglobin 15.8 g/dl 9:30:30 Zully Islsa RN sent for patient. Start room use. 9:36:12 Patient received from Pre/Post Procedure Room to CCL 1 Alert and oriented. Tansferred to table in Supine position. 9:36:13 Warm blankets applied, and luisana hugger turned on for patient comfort. 9:36:14 Correct patient and procedure confirmed by team. 9:36:14 ECG and BP/O2 sat monitors applied to patient. 9:41:29 Vital chart was started 9:44:40 0.9% NaCl 100 ml/hr I.V. was administered by Zully Islas RN; used for procedure; 9:44:47 Oxygen 2 l/min etCO2 Nasal cannula was administered by Zully Islas RN; used for procedure; 9:44:52 Lidocaine 2% 20ml vial added to field was administered by Chandana Kuo MD; for local anesthetic; 9:44:57 Heparin Flush Bag (1000units/500ml NS) 2 bags added to field was administered by Chandana Kuo MD; used for procedure; 9:45:03 Radial Cocktail (Verapomil 2mg/Nitro 400mcg/Heparin 1500units) 1 syringe added to field was administered by Chandana Kuo MD; used for procedure; 9:48:04 Rhythm: sinus bradycardia 9:48:05 Full Disclosure recording started 9:48:05 Pre-op teaching completed and patient verbalized understanding. 9:48:08 Pre-procedure instructions explained to patient. 9:48:09 Family in patients room. 9:48:11 Patient NPO since Midnight. 9:48:13 Is patient on blood thinner?Yes 9:48:20 PRE LOADED PLAVIX 9:48:22 Patient diabetic? No. 9:48:25 Previous problem with sedation/anesthesia? No ? 9:48:26 Snore? Yes 9:48:28 Sleep apnea? Yes 9:48:30 Deviated septum? No 9:48:31 Opens mouth fully? Yes 9:48:31 Sticks out tongue? Yes 9:48:35 Airway obstruction? No ? 9:48:36 Dentures? No ? 9:48:38 Modified Tom's test Ulnar < 7 seconds 9:48:40 Patient pain scale 0/10 ?. 9:48:49 IV patent on arrival in left antecubital with 0.9% NaCl at [facility]. 9:48:52 Lab results completed and on chart. 9:48:55 Right Radial & Right Groin area was prepped with chlora-prep and draped in sterile fashion 9:48:56 Alarms reviewed by RMarlene N. 9:48:56 Sharps counted by scrub and verified by R.N. 9:49:06 Baseline sample Acquired. 9:49:26 Use device set Radial Dx or PCI 9:49:27 ACIST Syringe (96790) opened to sterile field. 9:49:28 Bag Decanter () opened to sterile field. 9:49:28 ACIST Hand Control (52978) opened to sterile field. 9:49:29 ACIST Manifold (93084) opened to sterile field. 9:49:29 Tegaderm 4 x 4 (1626W) opened to sterile field. 9:49:32 Medline Cath Pack ([id number]) opened to sterile field. 9:49:32 DIAGNOSTIC WIRE .035 260cm J wire (786698) opened to sterile field. 9:49:33 MBrace Wrist Support ([id number]) opened to sterile field. 10:06:50 --------ALL STOP TIME OUT------ 10:06:50 Final Timeout: patient, procedure, and site verified with staff and physician. All members of the team are in agreement. 10:06:52 Right Radial & Right Groin site verified by team. 10:06:56 Fire Safety Assessment: A--An alcohol-based skin anteseptic being used preoperatively., C--Open oxygen or nitrous oxide is being used., D--An ESU, laser, or fiber-optic light is being used. 10:06:59 Physical assessment completed. ASA score P 2 - A patient with mild systemic disease as per Chandana Kuo MD. 10:07:01 Sedation plan: IV Moderate Sedation Medication:Versed, Fentanyl 10:08:38 Versed 2 mg I.V. was administered by Zully Islas RN; for sedation; 10:08:49 Fentanyl 50 mcg I.V. was administered by Zully Islas RN; for sedation; 10:11:14 Procedure started. 10:11:22 Local anesthetic to right radial artery with Lidocaine 2% by Chandana Kuo MD.INITIAL ACCESS ONLY 10:11:36 SHEATH 6FR Slender ([id number]) opened to sterile field. 10:12:08 A 6 Fr Short sheath was inserted into the Right Radial artery 10:12:24 A DIAGNOSTIC 5FR Infinity RBL-TG ([id number]) was advanced over the wire and used for Procedure. 10:12:36 Versed 2 mg I.V. was administered by Zully Islas RN; for sedation; 10:12:40 Fentanyl 50 mcg I.V. was administered by Zully Islas RN; for sedation; 10:15:22 LV gram done using ASHLEY 10:15:24 Injector settings: Ml/sec: 7, Volume: 15, 10:15:44 EF : 55 % 10:16:02 Catheter exchanged over wire. 10:16:33 Versed 2 mg I.V. was administered by Zully Islas RN; for sedation; 10:16:38 Fentanyl 50 mcg I.V. was administered by Zully Islas RN; for sedation; 10:16:47 A DIAGNOSTIC [place] 110cm 5 Fr catheter ([id number]) was advanced over the wire and used for Procedure. 10:18:01 RCA angiography performed. 10:18:34 Catheter exchanged over wire. 10:18:43 GUIDE 6FR XB 3.5 catheter ([id number]) opened to sterile field. 10:18:49 INFLATOR Merit BasixCompak (CW8229) opened to sterile field. 10:18:50 CHOICE PT Extra Support 182cm wire ([id number]) opened to sterile field. 10:19:03 [place] Council [place]ag[place]e IVUS Catheter (08801D) opened to sterile field. 10:20:07 6 Fr XB 3.5 guide catheter was inserted over the wire 10:20:28 LCA angiography performed. 10:21:13 CHOICE ES 182 wire advanced. 10:21:28 Wire advanced across lesion. 10:25:28 IVUS catheter advanced over wire. 10:25:30 IVUS pass to LAD lesion performed. 10:25:32 IVUS catheter removed over wire. 10:27:27 Versed 2 mg I.V. was administered by Zully Islas RN; for sedation; 10:27:31 Heparin Bolus 4000 units I.V. was administered by Zully Islas RN; for anticoagulation; verified with Dr. Kuo 10:27:49 Place stent Inflation Number: 1 A INTEGRITY 4.0 x 18 stent ([id number]) was prepped and advanced across the Prox LAD. The stent was deployed at 19 FORREST for 0:00 (min:sec). 10:28:17 Stent catheter was removed intact over wire. 10:29:21 Guide catheter removed. 10:30:47 Wire removed. 10:30:52 GUIDE 6FR AR 2.0 catheter ([id number]) opened to sterile field. 10:30:55 6 Fr AR 2 guide catheter was inserted over the wire 10:31:04 CHOICE ES 182 wire advanced. 10:31:06 Wire advanced across lesion. 10:33:11 IVUS catheter advanced over wire. 10:33:13 IVUS pass to RCA lesion performed. 10:33:58 Place stent Inflation Number: 1 A INTEGRITY RX 3.5 x 30 stent ([id number]) was prepped and advanced across the Dist RCA. The stent was deployed at 15 FORREST for 0:00 (min:sec). 10:34:22 Stent catheter was removed intact over wire. 10:34:23 Wire removed. 10:34:25 Guide catheter removed. 10:34:42 Procedure ended.(Physican Out) 10:36:22 ZEPHYR REGULAR TR BAND NO COST(558670) opened to sterile field. 10:36:59 Sheath removed intact; hemostasis achieved with Mechanical Compression to the Right Radial artery. 10:37:05 Fluoroscopy time 08.10 minutes. 10:37:10 Flurop Dose total: 1072 10:37:10 Fluoroscopy dose: 1072 mGy 10:37:14 Contrast amount:Isovue 300 137ml. 10:37:53 TR band inflated with 10cc of air. 10:37:56 Post-procedure physical assessment completed. ASA score P 2 - A patient with mild systemic disease as per Chandana Kuo MD. 10:38:00 Post procedure rhythm: sinus rhythm 10:38:01 Estimated blood loss: 8 ml 10:38:02 Post procedure instruction explained to patient.Patient verbalizes understanding. 10:38:03 Patient needs reinforcement of post procedure teaching. 10:38:38 Procedure type changed to Cath procedure, Diagnostic procedure, LHC, LHC w/Coronaries, FFR/IVUS, Intra-Coronary IVUS Initial, Intra-Coronary IVUS Additional, Sedation Charges, Moderate Sedation up to 15 minutes, PCI procedure, Coronary Stent, Coronary Stent Initial, Coronary Stent Additional 10:39:12 Procedure and supply charges have been captured, reviewed, submitted and are correct. 10:39:14 Procedure Complication : No complications 10:39:17 Vital chart was stopped 10:39:17 See physician's report for complete and final results. 10:39:20 Report given to Pre/Post Procedure Room. 10:39:22 Patient transfered to Pre/Post Procedure Room with Bed. 10:39:24 Procedure ended. 10:39:24 Full Disclosure recording stopped 10:39:27 End room use (Document Last) Intervention Summary Intervention Notes Time ActionType Lesion and Equipment Action# Pressure Duration Attributes Used 10:27:49 Place stent Prox LAD INTEGRITY 1 19 00:00 4.0 x 18 stent ([id number]) 10:33:58 Place stent Dist RCA INTEGRITY RX 1 15 00:00 3.5 x 30 stent ([id number]) Device Usage Item Name Manufacture Quantity Catalog Number Hospital Part Current Mini mal Lot# / Charge Number Stock Stock Serial# Code ACIST Acist 1 15321 556620 820009 256278 20 Syringe Medical (51188) Systems Inc Bag Decanter Microtek 1 2002S 513740 52733 028601 5 (2001S) Medical Inc. ACIST Hand Acist 1 56419 761884 960499 662058 5 Control Medical (62501) Systems Inc ACIST Acist 1 61419 326104 971186 623860 5 Manifold Medical (73961) Systems Inc Tegaderm 4 x 3M 1 1626W 808306 825235 889412 5 4 (1626W) Medline Cath Medline 1 [id number] 930722 76242 977192 5 Pack ([id number]) DIAGNOSTIC St Live 1 247382 734521 172704 654314 30 WIRE .035 260cm J wire (598107) MBrace Wrist Advanced 1 140-0250-00 067822 38341 307493 5 Support Vascular ([id number]) Dynamics SHEATH 6FR Terumo 1 [id number] 964670 211386 902760 5 Slender (80-1060) DIAGNOSTIC Cardinal 1 [id number] 578707 094050 5 5FR [employer] Health RBL-TG (792794Y2) DIAGNOSTIC Terumo 1 40-1635 053702 151865 260686 5 [place] 110cm 5 Fr catheter (256013) GUIDE 6FR XB Cardinal 1 [id number] 678166 701868 829339 2 3.5 Pulselocker (03643225) INFLATOR Merit [address] [id number] 531332 226[address] 94[address] [facility] Medical BasixCompak (BB6742) CHOICE PT Moran 1 [id number] 337608 707804 061715 5 Extra Scientific Support 182cm wire ([id number]) [place] 1 35908O 813194 901651 006635 8 Council [place]ag[place] IVUS Catheter (06701X) INTEGRITY Medtronic 1 [id number] 437691 271123 425842 5 [id number] 4.0 x 18 stent ([id number]) GUIDE 6FR AR Medtronic 1 [id number] 416514 95332 377025 1 2.0 catheter (AU3TJ34) INTEGRITY RX Medtronic 1 [id number] 554342 574788 582502 5 [id number] 3.5 x 30 stent ([id number]) ZEPHYR Cardinal 1 864612 695697 271650 5 REGULAR TR Health BAND NO COST(945276) Signature Audit [place] Stage Time Signature Unsigned Intra-Procedure 08/30/2018 Trudy Palacios 10:41:23 AM RT(R) Signatures Monitor : Trudy Palacios Signature : RT Date : Time : [place] [address] [place] [address]
[~2018-08-30 07:33] MED LIST changes: -BYSTOLIC5 MG PO
[2018-08-30] MEDS ORDERED: BYSTOLIC5 MG PO (07:55)
[2018-08-30 08:01] VITALS: BP 115/70; Ht 180.3 cm; Wt 109.1 kg
[2018-08-30 08:53] LABS: BASOPHILS 0.6 % (0-2); EOSINOPHILS 5.7 % (0-7); HEMATOCRIT 44.5 % (42.0-54.0); HEMOGLOBIN 15.8 g/dL (13.5-17.5); IMMATURE GRANULOCYTES 0.3 % (0-5); LYMPHOCYTES 16.9 % (15-50); MCH 33.4 pg (26.0-34.0); MCHC 35.5 g/dL (31.0-37.0); MCV 94.1 fL (80.0-100.0); MEAN PLATELET VOLUME 10.6 fL (7.4-10.4); MONOCYTES 6.6 % (2-11); NEUTROPHILS 69.9 % (40-80); PLATELET COUNT 209 10x3/uL (130-400); RBC 4.73 10x6/uL (4.20-6.10); RDW 12.6 % (11.5-14.5); WBC 7.9 10x3/uL (4.8-10.8)
[2018-08-30 09:12] LABS: ANION GAP 12.7 mmol/L (8-16); CALCIUM 8.6 mg/dL (8.5-10.1); CARBON DIOXIDE 28.5 mmol/L (21.0-32.0); CREATININE - SERUM 1.3 mg/dL (0.6-1.3); POTASSIUM - SERUM 4.2 mmol/L (3.5-5.1)
--- NOTE | 2018-08-30 11:05 | NUR ---
2L NC, NO RESP DISTRESS. RIGHT WRIST TR BAND CDI, NO BLEEDING OR HEMATOMA NOTED. NO C/O PAIN OR NAUSEA. VSS. FAMILY AT BEDSIDE, CALL LIGHT WITHIN REACH.
--- NOTE | 2018-08-30 11:35 | NUR ---
RIGHT WRIST TR BAND CDI, NO BLEEDING OR HEMATOMA NOTED. 2L NC WITH NO RESP DISTRESS. SIPPING ON DRINK AND EATING SANDWICH WITH NO C/O NAUSEA. VSS. WILL CONINUE TO MONITOR.
--- NOTE | 2018-08-30 11:50 | NUR ---
RESTING COMFORTABLY WITH NO C/O. RIGHT WRIST TR BAND CDI, NO BLEEDING OR HEMATOMA NOTED. DENIES ANY NEEDS AT THIS TIME. VSS. CALL LIGHT WITHIN REACH.
--- NOTE | 2018-08-30 12:20 | NUR ---
RESTING COMFORTABLY WITH NO C/O. RIGHT WRIST TR BAND CDI, NO BLEEDING OR HEMATOMA NOTED. DENIES ANY NEEDS AT THIS TIME. VSS. CALL LIGHT WITHIN REACH.
--- NOTE | 2018-08-30 13:29 | NUR ---
3CC OF AIR REMOVED FROM TR BAND WITH NO BLEEDING NOTED. VSS. WILL CONINUE TO MONITOR.
--- NOTE | 2018-08-30 13:45 | NUR ---
3CC OF AIR REMOVED FROM TR BAND WITH NO BLEEDING NOTED.
--- NOTE | 2018-08-30 14:08 | NUR ---
LEFT PIV D/C'D WITH CATHETER INTACT, BAND AID TO SITE. UP TO BEDSIDE TO GET DRESSED. AMBULATED TO RESTROOM.
--- NOTE | 2018-08-30 14:18 | NUR ---
REMAINING AIR REMOVED FROM TR BAND WITH NO BLEEDING NOTED. DRESSING PLACED TO SITE. DISCHARGE INSTRUCTIONS ALONG WITH PLAVIX PRESCRIPTION GIVEN, VERBALIZED UNDERSTANDING.
--- NOTE | 2018-08-30 14:30 | NUR ---
TAKEN OUT VIA WHEELCHAIR BY CATH APPLICATION ARCHITECT MANAGER. LEFT FACILITY WITH FAMILY AND ALL PERSONAL BELONGINGS.
--- NOTE | 2018-08-31 17:10 | OP ---
PATIENT NAME: HENRIETTA WASHBURN MEDICAL RECORD: [id number] :56 LOCATION:[facility] ADMISSION DATE: SURGEON: DYLAN TIAN MD DATE OF OPERATION: 08/30/2018 PROCEDURES: 1. PTCA and stent of RCA. 2. PTCA and stent of LAD. 3. Intravascular ultrasound of RCA. 4. Intravascular ultrasound of LAD. 5. Left heart catheterization. 6. Selective coronary angiography. 7. Left ventriculogram. INDICATION: Angina and coronary artery disease. PROCEDURE PERFORMED: After informed consent was obtained and after detailed explanation of risks, benefits as well as alternative therapies, the patient elected to proceed with angiogram and angioplasty. The right radial area was prepped and draped in normal sterile fashion. Right radial artery was cannulated via modified Seldinger technique with placement of 6-Al[place] sheath. All catheters exchanged through this sheath. FINDINGS: Left ventriculogram was performed in standard 30-degree ASHLEY view, reveals good cardiac wall motion throughout all segments. Overall ejection fraction estimated 60%. SELECTIVE CORONARY ANGIOGRAPHY: 1. Left main is with no significant angiographic disease. 2. Left circumflex and ramus intermedius have previously placed stents. These are widely patent with no significant restenosis. No disease elsewise throughout the circumflex or its branches. 3. Left anterior descending has previously placed stents. These are widely patent; however, intravascular ultrasound reveals there is 80% stenosis proximal to the previously placed stents. 4. Right coronary has previously placed stents. These are widely patent; however, distal to the previously placed stents, there is 80% stenosis confirmed by intravascular ultrasound. PTCA AND STENT OF THE LAD: The stent used was a 4.0 x 18-mm Integrity. Result was 0% residual stenosis. PTCA AND STENT OF THE RCA: The stent used was a 3.5 x 30-mm Integrity. Result was 0% residual stenosis. OVERALL IMPRESSION: Successful PTCA and stent of the LAD and RCA going from 80% initial stenosis on each vessel to 0% residual. TRANSINT:[id number] Voice Confirmation ID: [id number] DOCUMENT ID: [id number] OPERATIVE REPORT [id number] HENRIETTA WASHBURN DYLAN TIAN MD at 1710 CC: [id number] DICTATION DATE: 08/30/18 1039 DIRECTOR BANKING: 08/30/18 1220 DEP CLI 08/30/18 [facility] [address] [facility] [place] [place] [id number]
== END 2018-08-30 14:30 | disposition home or self-care (01) ==
LOC: D.CATH 07:33
PROVIDERS: Internal Medicine Interventional Cardiology
DX: I25.119 Atherosclerotic heart disease of native coronary artery with unspecified angina pectoris (principal); Z01.812 Encounter for preprocedural laboratory examination